=== PATIENT | female | born 1940 | race Two or more races ===

== ENCOUNTER 2024-12-25 16:46 | Inpatient (IN) | payer MEDICAID, SELFPAY ==
[2024-12-25] VITALS (8 sets, daily range): BP systolic 120–212; BP diastolic 71–168; PULSE 102–136; RESP 16–96; TEMP 36.8–39.4; O2SAT 94–100; BMI 31.8
--- NOTE | 2024-12-25 17:46 | XR_ITS ---
EXAMINATION: AP chest single view TECHNIQUE: AP portable upright chest single view Date and time: December 25, 2024, 1755 hours INDICATIONS: Sepsis alert today with shortness of breath FINDINGS: No significant enlargement cardiac contour. Ectatic thoracic aorta. No pneumonia or pulmonary edema Prominent osteopenia IMPRESSION: No active disease
[2024-12-25] MEDS: RINGERS LACTATED 1000 ML 1,000 ML 999 ML IV ×2 (17:55→19:16)
[2024-12-25] MEDS: ACETAMINOPHEN IVPB 1,000 MG/100 ML VIAL 250 MG IV (18:08)
[2024-12-25] MEDS: cefTRIAXone/D5w 1gm IV premix 1 GM/50 ML BAG IV (18:16)
[2024-12-25 18:23] LABS: Collection Type, Urine Clean Catch
[2024-12-25 18:29] LABS: Lactate (Lactic Acid) 8.2 mMol/L (0.4-2.0)
--- NOTE | 2024-12-25 18:30 | XR_ITS ---
Examination: CT abdomen and pelvis without contrast. Coronal 3-D reconstructions. Sagittal 2-D reconstructions. Date and time of exam: December 25, 2024, 1927 hours COMPARISON: January 22, 2023 INDICATIONS: Generalized abdominal pain and diarrhea onset today. CTDI: vol (mGy): 8.82 DLP: (mGycm): 485 Technique: Axial images of the abdomen have been obtained, 3 mm slice thickness Intravenous contrast material has not been administered. Low dose protocols were performed. One or more of the following dose reduction techniques were used; automated exposure control, adjustment of the mA and/or KV according to patient size, use of iterative reconstruction technique. Findings: 4 mm pulmonary nodule left lower lobe Liver is irregular in contour and moderately enlarged, no focal liver lesions Contracted gallbladder Spleen is not enlarged Normal adrenal glands Significant left perinephric stranding, no hydronephrosis Aorta normal size No pericecal inflammatory change Distended urinary bladder Localized weakening of the anterior pelvic wall No bowel obstruction Prominent osteopenia with grade 1 anterolisthesis L4 on L5 IMPRESSION: Moderate hepatomegaly, suspicious for primary hepatocellular disease 4 mm pulmonary nodule left lower lobe, recommend PA lateral chest follow-up Significant left perinephric stranding, consider left pyonephritis No CT findings of appendicitis or bowel obstruction
[2024-12-25 18:33] LABS: Basophils # (Auto) 0.1 Thou/mm3 (0.0-0.2); Basophils % (Auto) 0 % (0-2.5); Eosinophils # (Auto) 0.0 Thou/mm3 (0.0-0.5); Eosinophils % (Auto) 0 % (0-10); Hematocrit 32.5 % (36.0-46.0); Hemoglobin 11.2 g/dL (12.0-16.0); Immature Granulocytes Auto 0.52 Thou/mm3 (0.00-0.00); Lymphocytes # (Auto) 1.6 Thou/mm3 (1.0-4.8); Lymphocytes % (Auto) 4 % (10-50); Mean Corpuscular HGB Conc 34.5 g/dl (31.0-37.0); Mean Corpuscular Hemoglobin 29.7 pg (25.0-35.0); Mean Corpuscular Volume 86 fL (80-100); Monocytes # (Auto) 1.6 Thou/mm3 (0.0-0.8); Monocytes % (Auto) 4 % (0-12); Neutrophils # (Auto) 35.8 Thou/mm3 (1.8-7.7); Neutrophils % (Auto) 90 % (37-80); Nucleated Red Blood Cell # 0.02 Thou/mm3 (0.00-0.00); Nucleated Red Blood Cell % 0 /100 WBC (0); Platelet Count 433 Thou/mm3 (140-440); RDW Standard Deviation 44.5 fL (36.4-46.3); Red Blood Count 3.77 Miln/mm3 (4.00-5.20)
--- NOTE | 2024-12-25 18:34 | EDNOTE_ITS ---
ED General RME/HPI General Chief complaint: Altered Mental Status Stated complaint: AMS Time Seen by Provider: 12/25/24 18:32 Arrival date/time: 12/25/24 16:46 CC: Body aches, with mild nausea HPI 8 days. Patient denies dizziness headache blurred vision seeing spots diarrhea constipation chest pain or shortness of breath. Related Data Home Medications ?Medication ?Instructions ?Recorded ?Confirmed amlodipine 5 mg tablet 5 mg PO QDAY 05/04/17 aspirin 81 mg tablet,delayed 81 mg PO DAILY 05/04/17 1 03/25/22 release (Aspir-) Held on 01/27/23. Instructions: untill visit PCP atorvastatin 20 mg tablet 20 mg PO QDAY 05/04/1701/22 hydrochlorothiazide 25 mg tablet 25 mg PO QDAY 8 01/22/23 losartan 100 mg tablet 100 mg PO QDAY 05/04/17 1204/15 sitagliptin phosphate 50 1 tab PO BID 05/04/17 mg-metformin 1,000 mg tablet ([place]umet) dorzolamide 22.3 mg-timolol 6.8 1 drp ophthalmic (eye) BID 01/22/23 01/24/23 mg/mL eye drops latanoprost 0.005 % eye drops 1 drp ophthalmic (eye) H S 01/22/23 01/24/23 Previous Rx's ?Medication ?Instructions ?Recorded diclofenac sodium 1 % topical gel 2 g topical QID PRN pain #100 grams 10/28/21 (Arthritis Pain (diclofenac)) pantoprazole 40 mg tablet,delayed 40 mg PO QDAY #30 ta bs 01/27/23 release Allergies Allergy/AdvReac Type Severity Reaction Status Date / Time No Known Allergies Allergy Verified 01/24/23 20:22 Review of Systems Review of Systems Narrative Review of Systems: GEN: No fever, no chills, no weight loss, +bodyaches EYES: No discharge, no visual changes, no pain HEENT: No ear pain, no congestion, no sore throat PULM: No shortness of breath, no cough, no congestion CV: No chest pain, no dyspnea on exertion, no palpitations GI: No nausea, no vomiting, no diarrhea, no pain, no constipation : No frequency, no urgency, no dysuria MUSC/SKEL: No joint pain, no back pain SKIN: No rash PSYCH: No hallucinations, no depression HEME/LYMPH: No easy bleeding or bruising tendencies NEURO: No weakness, no headache Past Medical History Past Medical History NEUROLOGIC: Negative Neurological Disorders or Seizures CARDIAC: Positive Cardiac Disorders, Hypercholesterolemia and Hypertension; Negative Congestive Heart Failure RESPIRATORY: Negative Chronic Obstructive Pulmonary Disease (COPD) GASTROINTESTINAL: Negative Gastrointestinal Disorders GENITOURINARY: Negative Genitourinary Disorders or Renal Disease MUSCULOSKELETAL: Negative Musculoskeletal Disorders ENT: Positive Cataracts and Blind ENDOCRINE: Positive Endocrine Disorders, Diabetes Mellitus Type 2 and Hyperthyroidism; Negative Diabetes Mellitus Type 1 HEMATOLOGIC: Negative Blood Disorders OTHER HISTORY: Positive Blood Transfusions; Negative Blood Transfusion Reaction or Anesthesia Reactions Social History SMOKING STATUS: Never smoker ED Exam Narrative Physical exam: [General: Obese in mild discomfort but not in any acute distress Head normocephalic HEENT: Within acceptable limits Neck is supple nontender Chest equal chest rise nontender to palpation Respiratory: Clear to auscultation no wheezes crackles or rubs CV: Rate rhythm is regular no murmurs rubs or clicks Abdomen is distended secondary to body habitus soft nontender no masses positive bowel sounds all 4 quadrants Back: No CVA tenderness no spinous process tenderness from cervical spine thoracic and lumbar spine Skin: Intact no petechiae rash induration ulceration or crepitus Extremities: Moving all extremity against resistance cap refill less than 2 seconds neurosensory intact. No lower extremity edema Neuro: Awake alert oriented x3 Glascow coma 15 no focal deficits] Course Course Course Narrative: Patient is septic, with a CT that shows perinephric stranding on the left side suggestive of pyelonephritis although urine did not present self the patient certainly presents with the type of complaints. Patient will be admitted for pyelonephritis hyponatremia and sepsis. Patient's case presented to Dr. Winters, resident for Dr. Eaton, who agrees to accept the patient for admission. Quality Measures none Orders Category Date Time Status Admit to Inpatient Status Routine Admission 12/25/24 22:06 Active Patient Condition Routine Admission 12/25/24 22:06 Ordered Bedrest NOW Care 12/25/24 22:07 Active Bedside Blood Glucose ACHS Care 12/25/24 22:22 Active Bedside COVID-19 Antigen Test NOW Care 12/25/24 17:58 Active COVID-19 Screening Questionnaire NOW Care 12/25/24 20:42 Active Fine Wire Drawer STAT Care 12/25/24 17:46 Active Continuous Pulse Oximetry STAT Care 12/25/24 17:46 Completed Decision to Admit X1 Care 12/25/24 20:42 Completed EKG (ED ONLY) *Do not use* NOW Care 12/25/24 17:46 Completed In and Out Catheter X1 Care 12/25/24 17:49 Completed In and Out Catheter X1PRN Care 12/25/24 17:46 Completed Insert IV NOW Care 12/25/24 17:46 Active Miscellaneous Nursing Order X1 Care 12/25/24 22:11 Active NPO STAT Care 12/25/24 17:46 Active Notify provider NEEDED Care 12/25/24 22:06 Active Nurse Swallow Screen X1 Care 12/25/24 22:24 Active Obtain weight daily Care 12/25/24 22:07 Active Strict Intake and Output Routine Care 12/25/24 17:46 Ordered Diet Carbohydrate Consistent Low Diet 12/26/[address] abdomen pelvis wo con Stat Exams 12/25/24 18:30 Completed EKG (ED Only) Stat Exams 12/25/24 17:46 Ordered XR chest 1V SEPSIS PROTOCOL Stat Exams 12/25/24 17:46 Completed A1C [Glycohemoglobin w (eAG)] AM DRAW Lab 12/26/24 05:00 Ordered B-Type Natriuretic Peptide Stat Lab 12/25/24 17:59 Completed Blood Culture (Lab) Stat Lab 12/25/24 18:12 Received CBC AM DRAW Lab 12/26/24 05:00 Ordered CBC AM DRAW Lab 12/27/24 05:00 Ordered CBC AM DRAW Lab 12/28/24 05:00 Ordered CBC AM DRAW Lab 12/29/24 05:00 Ordered CBC AM DRAW Lab 12/30/24 05:00 Ordered CBC AM DRAW Lab 12/31/24 05:00 Ordered CBC AM DRAW Lab 01/01/25 05:00 Ordered CBC AM DRAW Lab 01/02/25 05:00 Ordered CBC AM DRAW Lab 01/03/25 05:00 Ordered CBC AM DRAW Lab 01/04/25 05:00 Ordered CBC Stat Lab 12/25/24 17:59 Completed CMP [Comprehensive Metabolic Panel] AM DRAW Lab 12/26/24 05:00 Ordered CMP [Comprehensive Metabolic Panel] AM DRAW Lab 12/27/24 05:00 Ordered CMP [Comprehensive Metabolic Panel] AM DRAW Lab 12/28/24 05:00 Ordered CMP [Comprehensive Metabolic Panel] AM DRAW Lab 12/29/24 05:00 Ordered CMP [Comprehensive Metabolic Panel] AM DRAW Lab 12/30/24 05:00 Ordered CMP [Comprehensive Metabolic Panel] AM DRAW Lab 12/31/24 05:00 Ordered CMP [Comprehensive Metabolic Panel] AM DRAW Lab 01/01/25 05:00 Ordered CMP [Comprehensive Metabolic Panel] AM DRAW Lab 01/02/25 05:00 Ordered CMP [Comprehensive Metabolic Panel] AM DRAW Lab 01/03/25 05:00 Ordered CMP [Comprehensive Metabolic Panel] AM DRAW Lab 01/04/25 05:00 Ordered Chloride,Urine Random Routine Lab 12/25/24 22:12 Ordered Comprehensive Metabolic Panel Stat Lab 12/25/24 17:59 Completed Influenza A & B Rapid Panel Stat Lab 12/25/24 18:38 Completed K URINE [Potassium,Urine Random] Routine Lab 12/25/24 22:12 Ordered LDH (Lactate Dehydrogenase) Stat Lab 12/25/24 17:59 Completed Lactate (Lactic Acid) Stat Lab 12/25/24 17:59 Completed Lactic Acid [Lactate (Lactic Acid)] Q4H Lab 12/25/24 02:00 Ordered Lactic Acid [Lactate (Lactic Acid)] Q4H Lab 12/25/24 06:00 Ordered Lactic Acid [Lactate (Lactic Acid)] Q4H Lab 12/25/24 10:00 Ordered Lactic Acid [Lactate (Lactic Acid)] Q4H Lab 12/25/24 14:00 Ordered Lactic Acid [Lactate (Lactic Acid)] Q4H Lab 12/25/24 18:00 Ordered Lactic Acid [Lactate (Lactic Acid)] Q4H Lab 12/25/24 22:00 Ordered Lactic Acid, 3 HR Stat Lab 12/25/24 21:32 Completed Lipase Stat Lab 12/25/24 17:59 Completed Mag [Magnesium] AM DRAW Lab 12/26/24 05:00 Ordered Mag [Magnesium] AM DRAW Lab 12/27/24 05:00 Ordered Mag [Magnesium] AM DRAW Lab 12/28/24 05:00 Ordered Mag [Magnesium] AM DRAW Lab 12/29/24 05:00 Ordered Mag [Magnesium] AM DRAW Lab 12/30/24 05:00 Ordered Magnesium Stat Lab 12/25/24 17:59 Completed Partial Thromboplastin Time Stat Lab 12/25/24 17:59 Completed Path Review Blood Smear Stat Lab 12/25/24 17:59 Completed Phosphorous AM DRAW Lab 12/26/24 05:00 Ordered Phosphorous AM DRAW Lab 12/27/24 05:00 Ordered Phosphorous AM DRAW Lab 12/28/24 05:00 Ordered Phosphorous AM DRAW Lab 12/29/24 05:00 Ordered Phosphorous AM DRAW Lab 12/30/24 05:00 Ordered Phosphorous Stat Lab 12/25/24 17:59 Completed Procalcitonin Stat Lab 12/25/24 17:59 Completed Prothrombin Time with INR Stat Lab 12/25/24 17:59 Completed SODIUM NA URINE [Sodium,Urine Random] Routine Lab 12/25/24 22:12 Ordered Sodium Q4H Lab 12/26/24 02:00 Ordered Sodium Q4H Lab 12/26/24 06:00 Ordered Sodium Q4H Lab 12/26/24 10:00 Ordered Sodium Q4H Lab 12/26/24 14:00 Ordered Sodium Q4H Lab 12/26/24 18:00 Ordered Sodium Q4H Lab 12/26/24 22:00 Ordered TSH [Thyroid Stimulating Hormone] AM DRAW Lab 12/26/24 05:00 Ordered Troponin I Stat Lab 12/25/24 17:59 Completed Urinalysis, C/S if Indicated Stat Lab 12/25/24 18:00 Completed Urine Culture Stat Lab 12/25/24 18:00 Received VBG [Venous Blood Gas] Stat Lab 12/25/24 21:32 Completed Acetaminophen Ivpb [Ofirmev Inj] Med 12/25/24 17:49 Discontinued 1,000 mg in 100 ml IV NOW Acetaminophen Tab [Tylenol Tab] Med 12/25/24 22:06 Active 650 mg PO Q6H PRN Dextrose 50% Syr [D50w Syringe Abboject] Med 12/25/24 22:21 Active 25 ml IV Q15MIN PRN Dextrose 50% Syr [D50w Syringe Abboject] Med 12/25/24 22:21 Active 50 ml IV Q15MIN PRN Glucagon Inj Med 12/25/24 22:21 Active 1 mg IM Q15MIN PRN Heparin Inj Med 12/25/24 22:15 Active 5,000 unit SC Q8HR INSULIN LISPRO (AdmeLOG) [HumaLOG] Med 12/26/24 07:30 Active See Protocol SC AC Magnesium Sulfate 1 gm Ivpb [Magnesium Sulfate Ivpb] Med 12/25/24 19:58 Discontinued 1 gm in 100 ml IV X1 Magnesium Sulfate 4 GM Ivpb [Magnesium Sulfate Ivpb] Med 12/25/24 22:12 Active 4 gm in 50 ml IV X1 Ondansetron Inj [Zofran Inj] Med 12/25/24 22:06 Active 4 mg IVP Q6H PRN Ringers Lactated 1000 ml [Lactated Ringers] 1,000 ml Med 12/25/24 17:46 Discontinued IV 999 mls/hr Ringers Lactated 1000 ml [Lactated Ringers] 1,000 ml Med 12/25/24 18:31 Discontinued IV 999 mls/hr Ringers Lactated 500 ml [Lactated Ringers] 500 ml Med 12/25/24 18:31 Discontinued IV 999 mls/hr Sodium Chloride 0.9% 1000 ml [Ns] 1,000 ml Med 12/25/24 22:15 Active IV 100 mls/hr cefTRIAXone [Rocephin] 1,000 mg Med 12/25/24 22:09 Active SODIUM CHLORIDE 0.9% (Popper) [Ns 0.9% (P)] 50 ml IV X1 cefTRIAXone [Rocephin] 2 gm Med 12/26/24 09:00 Pending SODIUM CHLORIDE 0.9% (Popper) [Ns 0.9% (P)] 50 ml IV QDAY cefTRIAXone/D5w 1gm IV premix [Rocephin/D5w 1gm IV Med 12/25/24 17:58 Discontinued premix] 1 gm in 50 ml IV X1 hydrALAZINE INJ [Apresoline Inj] Med 12/25/24 19:59 Discontinued 10 mg IVP X1 ONE Code Status Routine Oth 12/25/24 22:06 Ordered Oxygen Delivery NOW RT 12/25/24 17:46 Active Vital Signs Vital signs: Vital Signs Temperature 102.9 F H 12/25/24 16:56 Pulse Rate 136 H 12/25/24 16:56 Respiratory Rate 24 H 12/25/24 16:56 Blood Pressure 212/168 H 12/25/24 16:56 Pulse Oximetry (%) 95 12/25/24 16:56 Oxygen Delivery Method Nasal Cannula 12/25/24 16:56 Oxygen Flow Rate 2 12/25/24 16:56 Discharge Plan Plan Patient Disposition: Other Care w/in Hosp ([facility]) Patient condition on transfer: Stable Problem List Clinical Impression: Sepsis, Pyelonephritis, Hyponatremia, Acute renal insufficiency PA/ROBERT Supervising Physician MAURY/IMPORT EXPORT COORDINATOR Supervising Physician: Shemar Mckeon ENP [facility] Clinical Information Provided by: patient Medical Records reviewed [facility] Meds/Rx considered, not ordered None Labs/Rad/Tests considered, not ordered None Chronic Illness/Social Conditions Explain: Hypertension hyperlipidemia diabetes EKG Interpretation EKG #1: EKG Interpretation: EKG performed 1726 was ventricular rate of 130 MS interval 150 QRS of 74 QTc of 327 this is sinus tachycardia. Baseline wander. No significant ST segment changes Labs Labs: interpreted by me Lab(s) Interpretation(s): CBC shows a WBCs of 39.6 H&H of 11.2 and 32.5 respectively. Neutrophils at 90%. No bandemia. Coags within acceptable limits Sodium at 121 potassium at 5.0 chloride at 8 5 BUN at 21 creatinine 1.8 glucose at 268 lactic at 8.2 mag at 1.3. Troponin is unremarkable BMP is unremarkable. Creatinine at 5.29. Urine is 3+ glucose 1+ protein 2+ blood no ketones nitrite and leukocyte esterase -1+ bacteria Influenza A and B are negative. Imaging Imaging interpretation: interpreted by me Imaging Interpretation(s): Chest x-ray shows no active disease. Medication Administration(s) Medication Administration History Acetaminophen (Acetaminophen 325 Mg Tablet) 650 mg PO Q6H PRN PRN Reason: PAIN OR FEVER > 100.4 Stop: 01/24/25 22:05 Dextrose (Dextrose 50%-Water Inj 50 Ml Syringe) 25 ml IV Q15MIN PRN PRN Reason: BG 50-70 responsive npo pt Stop: 01/24/25 22:20 Dextrose (Dextrose 50%-Water Inj 50 Ml Syringe) 50 ml IV Q15MIN PRN PRN Reason: BG <50 OR BG <70 & pt unresponsive Stop: 01/24/25 22:20 Glucagon (Glucagon Inj 1 Mg Vial) 1 mg IM Q15MIN PRN PRN Reason: BG <70, and no IV access Heparin Sodium (Porcine) (Heparin Sod Inj 5000 Unit/Ml Vial) 5,000 unit SC Q8HR LAURA Stop: 01/08/25 22:14 Sodium Chloride (Ns) 1,000 mls @ 100 mls/hr IV .Q10H LAURA Stop: 12/26/24 08:14 Ceftriaxone Sodium 1,000 mg/ (Sodium Chloride) 50 mls @ 100 mls/hr IV X1 ONE Stop: 12/25/24 22:38 Last Admin: 12/25/24 22:31 Dose: 100 mls/hr Documented By: LAMBERTO Magnesium Sulfate (Magnesium Sulfate Ivpb) 4 gm in 50 mls @ 12.5 mls/hr IV X1 ONE Stop: 12/26/24 02:11 Ceftriaxone Sodium 2 gm/ (Sodium Chloride) 50 mls @ 100 mls/hr IV QDAY [facility] Stop: 01/02/25 08:59 Insulin Human Lispro (Insulin Lispro (Admelog) 1 Unit/0.01 Ml Unit) 0 unit SC AC LAURA; Protocol Stop: 01/25/25 07:29 Ondansetron HCl (Ondansetron Inj 2 Mg/Ml Inj 2 Ml) 4 mg IVP Q6H PRN; Protocol PRN Reason: NAUSEA OR VOMITING Stop: 01/24/25 22:05 Discontinued Medications Hydralazine HCl (Hydralazine Inj 20 Mg/Ml Vial) 10 mg IVP X1 ONE Stop: 12/25/24 20:00 Last Admin: 12/25/24 20:39 Dose: Not Given Documented By: LAMBERTO Non-Admin Reason: Cancelled by Provider Comments: hold per provider bp 120/71 Lactated Ringer's (Lactated Ringers) 1,000 mls @ 999 mls/hr IV .Q1H1M ONE Stop: 12/25/24 18:46 Last Infusion: 12/25/24 19:19 Dose: Infused Documented By: Admin: 12/25/24 17:55 Dose: 999 mls/hr Documented By: CARISA Acetaminophen (Ofirmev Inj) 1,000 mg in 100 mls @ 250 mls/hr IV NOW ONE Stop: 12/25/24 18:12 Last Infusion: 12/25/24 18:40 Dose: Infused Documented By: Admin: 12/25/24 18:08 Dose: 250 mls/hr Documented By: CARISA Ceftriaxone Sodium/Dextrose (Rocephin/D5w 1gm Iv Premix) 1 gm in 50 mls @ 100 mls/hr IV X1 ONE Stop: 12/25/24 18:27 Last Infusion: 12/25/24 19:19 Dose: Infused Documented By: Admin: 12/25/24 18:16 Dose: 100 mls/hr Documented By: CARISA Lactated Ringer's (Lactated Ringers) 1,000 mls @ 999 mls/hr IV .Q1H1M ONE Stop: 12/25/24 19:31 Last Infusion: 12/25/24 20:29 Dose: Infused Documented By: Admin: 12/25/24 19:16 Dose: 999 mls/hr Documented By: CARISA Lactated Ringer's (Lactated Ringers) 500 mls @ 999 mls/hr IV .Q31M ONE Stop: 12/25/24 19:01 Last Infusion: 12/25/24 20:32 Dose: Infused Documented By: Admin: 12/25/24 19:30 Dose: 999 mls/hr Documented By: LAMBERTO Comments: unable to scan medication no LR bags avaible in 500mls. Verified with Stacy GASTON. Magnesium Sulfate/Dextrose (Magnesium Sulfate Ivpb) 1 gm in 100 mls @ 100 mls/hr IV X1 ONE Stop: 12/25/24 20:57 Last Infusion: 12/25/24 21:46 Dose: Infused Documented By: Admin: 12/25/24 20:41 Dose: 100 mls/hr Documented By: LAMBERTO Levalbuterol HCl (Levalbuterol Rt 0.31 Mg/3 Ml Nebu) 0.31 mg INH X1 ONE Stop: 12/25/24 22:32
[2024-12-25 18:36] LABS: Bacteria,Urine 1+; Bilirubin,Urine Negative (Negative); Blood,Urine 2+ (Negative); Clarity,Urine Clear (Clear/Hazy); Color,Urine Lt-Yellow (Lt Yel-Yel); Glucose, Urine 3+ (Negative); Hyaline Casts,Urine < 1 /hpf (0-1); Ketones,Urine Trace (Negative); Leukocyte Esterase,Urine Negative (Negative); Nitrite,Urine Negative (Negative); PH,Urine 5.5 (5.0-7.0); Protein,Urine 1+ (Neg - Trace); RBC,Urine 1 /hpf (0-3); Specific Gravity,Urine 1.009 (1.001-1.035); Squamous Epithelial Cell,Urine < 1 /hpf (0-5); Urobilinogen,Urine Negative mg/dL (0.0-1.0); WBC,Urine 4 /hpf (0-5)
[2024-12-25 18:37] LABS: Culture Indicated,Urine Yes
[2024-12-25 18:47] LABS: INR 1.1 (0.9-1.3); Partial Thromboplastin Time 30.2 Seconds (22.0-36.0); Prothrombin Time 11.4 Seconds (9.0-12.2)
[2024-12-25 18:48] LABS: White Blood Count 39.6 Thou/mm3 (3.6-11.0)
[2024-12-25 19:30] LABS: Path Review Blood Smear Sent to Pathologist
[2024-12-25] MEDS: RINGERS LACTATED 500 ML 500 ML 999 ML IV (19:30)
[2024-12-25 19:40] LABS: Alanine Aminotransferase 24 U/L (10-49); Albumin, Serum 4.2 gm/dL (3.4-4.8); Albumin/Globulin Ratio 1.6 (1.2-2.2); Alkaline Phosphatase 108 U/L (46-116); Anion Gap 15 (7-16); Aspartate Amino Transferase 26 U/L (0-34); BUN/Creatinine Ratio 12 Ratio (12-20); Bilirubin,Total 0.4 mg/dL (0.3-1.2); Blood Urea Nitrogen 21 mg/dL (9-23); Calcium 9.2 mg/dL (8.3-10.6); Calcium (Corrected) 9.2 mg/dL (8.5-10.1); Carbon Dioxide 21.5 mMol/L (20.0-31.0); Chloride 85 mMol/L (98-107); Creatinine (Component) 1.8 mg/dL (0.6-1.3); Estimated Creatinine Clearance 19.3 mL/min (>60); Globulin 2.6 gm/dL (2.3-3.5); Glucose 268 mg/dL (74-106); LDH (Lactate Dehydrogenase) 227 U/L (120-246); Lipase 23 U/L (12-53); Magnesium 1.3 mg/dL (1.6-2.6); Osmolality,Calculated 256 (275-295); Phosphorous 3.1 mg/dL (2.4-5.1); Potassium 5.0 mMol/L (3.4-5.1); Procalcitonin 5.29 ng/ml (0.0-0.49); Sodium 121 mMol/L (136-145); Total Protein 6.8 gm/dL (5.7-8.2); Troponin I < 0.020 ng/mL (0.0-0.045); eGFR 27 See Note
[2024-12-25 19:42] LABS: B-Type Natriuretic Peptide 73 pg/mL (0-100)
[2024-12-25 19:43] LABS: Influenza A Ag Negative; Influenza B Ag Negative
[2024-12-25 21:20] LABS: Reflex Lactate? Y
[2024-12-25 21:42] LABS: Lactic Acid, 3 HR 3.5 mMol/L (0.4-2.0)
[2024-12-25 21:43] LABS: Base Excess, Venous -2 (-3-3); O2 Saturation, Venous 79 % (96-97); PCO2, Venous 34 mmHg (36-56); PO2, Venous 39 mmHg (15-58); pH, Venous 7.43 (7.33-7.66)
--- NOTE | 2024-12-25 22:17 | ESHP_ITS ---
<Statement entered by Joe Eaton MD - 12/26/24 07:28> I have discussed and was present for the essential components of the history, physical examination, diagnosis, and treatment plan with the resident. I agree with the patient's care as documented by the resident and amended herein by me. Joe Eaton MD FACP. 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 The patient reports increased urinary frequency and fever with chills over the past 4 days but denies dysuria, hematuria, or foul- smelling urine. She had a bowel movement today and denies nausea, vomiting, or changes in stool consistency. There is no chest pain, orthopnea, or edema. She reports mild shortness of breath but denies cough, wheezing, or any recent travel. No recent changes in medications or known exposures to illness. ED course: Initial vitals include temperature 102.9, BP 212/168, RR 24, HR 136, O2 sat 95% on 2 L nasal prongs. Notable labs include WBC 39.6, sodium 121, potassium 5, creatinine 1.8, lactic acid 8.2 with repeat 3.5, magnesium 1.3, BNP 73, procalcitonin 5.29, LFTs within normal range. UA was unremarkable. VBG showed pH 7.43, pCO2 34. Patient received LR 2.5 L, ceftriaxone 2 g IV, magnesium sulfate 5 g. Initial chest x-ray showed no pneumonia, pulmonary edema. CT abdo/pelvis showed significant left perinephric stranding. Over the course of the night patient was transitioned to BiPAP as was having respiratory distress and successfully weaned off. Past medical history: As stated above. Allergies: NKDA Family history: Noncontributory. Social history: No alcohol use, no smoking, no illicit drug use. Patient admitted for Sepsis 2/ to Pyelonepritis. Review of Systems Review of Systems Narrative Review of Systems: All systems reviewed negative unless stated otherwise above. Exam Vital Signs Temp Pulse Resp BP Pulse Ox O2 Del Method O2 Flow Rate 98.3 F 102 H 20 120/71 97 Room Air 2 12/25/24 20:36 12/25/24 20:36 12/25/24 20:36 12/25/24 20:36 12/25/24 20:36 12/25/24 20:36 12/25/24 16:56 Narrative Exam General: AOx3, mild distress, SOB at end of sentences, Telugu-speaking HEENT: NC/AT, mucous membranes moist, bilateral sclera anicteric Cardiovascular: regular rate and rhythm, S1/S2 present, no murmurs appreciated Pulmonary: bilat wheezes, no rales/rhonchi/wheezes Abdominal: soft, generalized tenderness, distended, no rebound/guarding, normal bowel sounds present Musculoskeletal: normal ROM, no peripheral edema Skin: warm and dry, intact, no rashes, Neuro: CN II-XII intact, no focal deficits Results: Labs 12/25/24 17:59 12/26/24 01:50 Labs: Short CBC 12/25/24 Range/Units 17:59 WBC 39.6 H* (3.6-11.0) Thou/mm3 Hgb 11.2 L (12.0-16.0) g/dL Hct 32.5 L (36.0-46.0) % Plt Count 433 (140-440) Thou/mm3 BMP 12/25/24 17:59 Sodium 121 L Potassium 5.0 Chloride 85 L Carbon Dioxide 21.5 BUN 21 Creatinine 1.8 H Glucose 268 H Calcium 9.2 Cardiac Enzymes 12/25/24 Range/Units 17:59 Troponin I < 0.020 (0.0-0.045) ng/mL Liver Function 12/25/24 Range/Units 17:59 Total Bilirubin 0.4 (0.3-1.2) mg/dL AST 26 (0-34) U/L ALT 24 (10-49) U/L Alkaline Phosphatase 108 (46-116) U/L Albumin 4.2 (3.4-4.8) gm/dL Urine 12/25/24 Range/Units 18:00 Urine Color Lt-Yellow (Lt Yel-Yel) Urine Clarity Clear (Clear/Hazy) Urine pH 5.5 (5.0-7.0) Ur Specific [place] 1.009 (1.001-1.035) Urine Protein 1+ A (Neg - Trace) Urine Glucose (UA) 3+ A (Negative) ABG Interpretation ABG results: 12/25/24 21:32 VBG pH 7.43 VBG pCO2 34 L VBG pO2 39 VBG Base Excess -2 Quality Measures Quality Measures VTE prophylaxis Advance care planning discussed with:: patient Medications Home Medications and Allergies Home Medications ?Medication ?Instructions ?Recorded ?Confirmed ?Type hydrochlorothiazide 25 mg tablet 25 mg PO QDAY 8 12/26/24 History losartan 100 mg tablet 100 mg PO QDAY 05/04/1707/15 History dorzolamide 22.3 mg-timolol 6.8 1 drp ophthalmic (eye) BID 01/22/23 12/26/24 History mg/mL eye drops latanoprost 0.005 % eye drops 1 drp ophthalmic (eye) H S 01/22/23 12/26/24 History atorvastatin 10 mg tablet 10 mg PO HS 12/26/24 5 History blood sugar diagnostic (True 12/26/24 12/26/24 Histor y Metrix Glucose Test Strip) cholecalciferol (vitamin D3) 25 25 mcg PO QDAY 5 12/26/24 History mcg (1,000 unit) tablet (Vitamin D3) furosemide 20 mg tablet 20 mg PO Q12H 12/26/2412/26 History gabapentin 300 mg capsule 300 mg PO TID 12/26/2412/26 History insulin degludec 100 unit/mL (3 5 unit subcut Q24H PRN 12/26/24 12/26/24 History mL) subcutaneous pen (Tresiba hyperglycemia FlexTouch U-100 insulin) magnesium oxide 400 mg (241.3 mg 400 mg PO QDAY 12/26/24 History magnesium) tablet metformin 500 mg tablet,extended 1,000 mg PO BIDAC 07/1512/26/24 History release 24 hr multivitamin 1 tab PO QDAY 12/26/2412/26 History Allergies Allergy/AdvReac Type Severity Reaction Status Date / Time No Known Allergies Allergy Verified 01/24/23 20:22 Visit Medications Acetaminophen (Acetaminophen 325 Mg Tablet) 650 mg PO Q6H PRN PRN Reason: PAIN OR FEVER > 100.4 Stop: 01/24/25 22:05 Heparin Sodium (Porcine) (Heparin Sod Inj 5000 Unit/Ml Vial) 5,000 unit SC Q8HR LAURA Stop: 01/08/25 22:14 Sodium Chloride (Ns) 1,000 mls @ 100 mls/hr IV .Q10H LAURA Stop: 12/26/24 08:14 Ceftriaxone Sodium 1,000 mg/ (Sodium Chloride) 50 mls @ 100 mls/hr IV X1 ONE Stop: 12/25/24 22:38 Magnesium Sulfate (Magnesium Sulfate Ivpb) 4 gm in 50 mls @ 12.5 mls/hr IV X1 ONE Stop: 12/26/24 02:11 Ceftriaxone Sodium 2 gm/ (Sodium Chloride) 50 mls @ 100 mls/hr IV QDAY LAURA Stop: 01/02/25 08:59 Ondansetron HCl (Ondansetron Inj 2 Mg/Ml Inj 2 Ml) 4 mg IVP Q6H PRN; Protocol PRN Reason: NAUSEA OR VOMITING Stop: 01/24/25 22:05 Discontinued Medications Hydralazine HCl (Hydralazine Inj 20 Mg/Ml Vial) 10 mg IVP X1 ONE Stop: 12/25/24 20:00 Last Admin: 12/25/24 20:39 Dose: Not Given Lactated Ringer's (Lactated Ringers) 1,000 mls @ 999 mls/hr IV .Q1H1M ONE Stop: 12/25/24 18:46 Last Infusion: 12/25/24 19:19 Dose: Infused Acetaminophen (Ofirmev Inj) 1,000 mg in 100 mls @ 250 mls/hr IV NOW ONE Stop: 12/25/24 18:12 Last Infusion: 12/25/24 18:40 Dose: Infused Ceftriaxone Sodium/Dextrose (Rocephin/D5w 1gm Iv Premix) 1 gm in 50 mls @ 100 mls/hr IV X1 ONE Stop: 12/25/24 18:27 Last Infusion: 12/25/24 19:19 Dose: Infused Lactated Ringer's (Lactated Ringers) 1,000 mls @ 999 mls/hr IV .Q1H1M ONE Stop: 12/25/24 19:31 Last Infusion: 12/25/24 20:29 Dose: Infused Lactated Ringer's (Lactated Ringers) 500 mls @ 999 mls/hr IV .Q31M ONE Stop: 12/25/24 19:01 Last Infusion: 12/25/24 20:32 Dose: Infused Magnesium Sulfate/Dextrose (Magnesium Sulfate Ivpb) 1 gm in 100 mls @ 100 mls/hr IV X1 ONE Stop: 12/25/24 20:57 Last Infusion: 12/25/24 21:46 Dose: Infused Assessment & Plan Plan 84-year-old female with a history of hypertension, hyperlipidemia, type 2 diabetes mellitus, and blindness in both eyes due to diabetic neuropathy, presented to the ED after an outpatient evaluation for fever, chills, urinary symptoms, and flank pain. Patient admitted for sepsis 2/2 to pylenonephritis. #Sepsis 2/2 #Complicated UTI, L pylenonephritis Febrile 102.9 on admission WBC 39.6 Procal 5.29 Lactic acid 8.2, repeat 3.[address] abdo/pelvis showed significant left perinephric stranding In ED patient received LR 2.5L and CTX 2g. Plan - Zosyn 3.375g q8h - F/U Urine Cx, Blood Cx - ECHO ordered #Acute hypoxic respiratory failure, resolving Likely 2/2 to tiring out due to increased RR BNP 73 VBG showed pH 7.43, pCO2 34. Plan - Started on BiPaP, wean off as appropriate #Hypotonic Hyponatremia Hypovolemic Na 121, but with correction for hyperglycemia 123 Osmolarity 256 Plan - Na q4h - Avoid overcorrection, aim for 4-6 mEq increase in Na in 24hr #JALYN DDx: pre-renal vs renal vs post-renal Most likely pre-renal in the setting of sepsis Cr 1.3 Plan -Recheck level in AM #T2DM, non-insulin dependent Plan - A1c level - Insulin Sliding scale Health Maintenance: Diet: NPO GI prophylaxis: none DVT prophylaxis: Heparin 5000u q8h Antibiotics: Zosyn CODE STATUS: FULL Disposition: TELE Case discussed with my attending Dr. Eaton, and senior resident, Dr. Singh Falcon MD PGY-1
[2024-12-25] MEDS: cefTRIAXone 1,000 MG in SODIUM CHLORIDE 0.9% (Popper) 50 ML 100 MG IV (22:31)
[2024-12-25] MEDS: Magnesium Sulfate 4 GM Ivpb 4 GM/50 ML BAG IV (22:43)
[2024-12-25] MEDS: HEPARIN SOD INJ 5000 UNIT/ML VIAL SC (22:45)
[2024-12-25] MEDS: SODIUM CHLORIDE 0.9% 1000 ML 1,000 ML 100 ML IV (22:45)
[2024-12-25] MEDS: LEVALBUTEROL RT 0.31 MG/3 ML NEBU INH (22:58)
--- NOTE | 2024-12-25 23:09 | ECHO_ITS ---
Patient Info Name: Mary Sanches Age: 84 years : 1940 Gender: Female Ht: 150 cm Wt: 72 kg BSA: 1.76 m2 BP: 133 / 67 mmHg HR: 119 bpm Exam Date: 12/26/2024 8:39 AM Admit Date: 12/25/2024 Site: [facility] Patient Status: I Exam Type: CA echo doppler complete Action Finisher: Cecelia Bell Ordering Physician: Joe Eaton Study Info Indications Sepsis - Primary Location: S2NX Left Ventricular Outflow Tract Name Value Normal LVOT 2D LVOT Diameter 1.9 cm LVOT Doppler LVOT Peak Velocity 115 cm/s LVOT Mean Gradient 3 mmHg LVOT VTI 26 cm LVOT VTI/AV VTI Ratio 0.9 LVOT Stroke Volume 72 ml Pulmonic Valve Name Value Normal PV Doppler PV Peak Velocity 107 cm/s Mitral Valve Name Value Normal MV Doppler MV Decel [place] 1,013 cm/s2 MV PHT 41 ms MV Area (PHT) 5.4 cm2 4.0-5.0 MV Diastolic Function MV E Peak Velocity 143 cm/s Tricuspid Valve Name Value Normal TV Regurgitation Doppler TR Peak Velocity 176 cm/s Estimated PAP/RSVP RA Pressure 8 mmHg <=5 PA Systolic Pressure 20 mmHg <36 RV Systolic Pressure 20 mmHg <36 Aortic Valve Name Value Normal AV Doppler AV Peak Velocity 158 cm/s AV Mean Gradient 6 mmHg AV VTI 28 cm AV Area (Cont Eq VTI) 2.6 cm2 >=3.0 AV Area (Cont Eq Tc) 2.1 cm2 AV DI (Tc) 0.73 AV Regurgitation 2D LVOT Area 2.8 cm2 Ventricles Name Value Normal LV Dimensions 2D/MM IVS Diastolic Thickness (2D) 0.9 cm 0.6-0.9 LVID Diastole (2D) 3.5 cm 3.8-5.2 LVIW Diastolic Thickness (2D) 1.2 cm 0.6-0.9 LVID Systole (2D) 2.3 cm 2.2-3.5 LVOT Diameter 1.9 cm LV Mass (2D Cubed) 111.04 g 67.00-162.00 LV Mass Index (2D Cubed) 63 g/m2 43-95 Relative Wall Thickness (2D) 0.69 <=0.42 IVS/LVIW Diastolic Thickness (2D) 0.75 0.00-1.50 LV Fractional Shortening/Ejection Fraction 2D/MM LV Fractional Shortening (2D) 34 % 27-45 LV EF (2D Teichholz) 64 % Atria Name Value Normal LA Dimensions LA Volume (4C A-L) 44 ml LA Volume (BP A-L) 35 ml Left Ventricle Left ventricular chamber dimension is normal. Left ventricular systolic function is normal with visually estimated ejection fraction of 55-60%. There is concentric remodeling noted in the left ventricle. Left ventricular segmental wall motion is normal. There is indeterminate diastolic function in the left ventricle. Right Ventricle Right ventricular chamber dimension is normal. Right ventricular systolic function is normal. Left Atrium Left atrial chamber dimension is normal. Right Atrium Right atrial chamber dimension is normal. Aortic Valve The aortic valve is trileaflet. There is mild aortic valve sclerosis. There is no aortic valve stenosis with a peak velocity of 158 cm/s, mean gradient of 6 mmHg, and aortic valve area of 2.6 cm2. There is no aortic valve regurgitation. Pulmonic Valve The pulmonic valve is normal. There is no pulmonic valve stenosis. There is no pulmonic regurgitation. Mitral Valve The mitral valve has normal leaflets. There is no mitral valve stenosis. There is mild mitral valve regurgitation. Tricuspid Valve The tricuspid valve leaflets are normal. There is no tricuspid valve stenosis. There is mild tricuspid valve regurgitation. No pulmonary hypertension, estimated pulmonary arterial systolic pressure is 20 mmHg and systemic blood pressure of 133 mmHg in systole. Pericardium/Pleural The pericardium appears normal. There is no pericardial effusion. No pleural effusion visualized. Inferior Vena Cava Normal inferior vena cava with >50% collapse upon inspiration consistent with normal right atrial pressure, 8 mmHg. Aorta The aortic measurements are indexed to age and body surface area. The aortic root at the sinus of Valsalva is not well visualized. The prox ascending aorta is not well visualized. Summary 1. Left ventricle size is normal and systolic function is normal. Estimated ejection fraction is 55-60%. There is indeterminate diastolic function. There is concentric remodeling noted. 2. Right ventricle chamber size is normal and systolic function is normal. Estimated RVSP is 20 mmHg. 3. There is mild aortic valve sclerosis with no stenosis. 4. There is mild mitral valve and tricuspid valve regurgitation. 5. Normal IVC with estimated RA pressure 8 mmHg. Report Signatures Finalized by Reymundo Quarles on 12/26/2024 12:55 PM
--- NOTE | 2024-12-25 23:15 | XR_ITS ---
EXAMINATION: AP chest single view TECHNIQUE: AP portable upright chest single view Date and time: December 25, 2024, 11:40 p.m.,. INDICATIONS: Shortness of breath today. FINDINGS: Normal heart size Ectatic enlarged thoracic aorta. No lobar pneumonia or pulmonary edema Mild vascular congestion Prominent osteopenia IMPRESSION: Mild vascular congestion
[2024-12-25] MEDS: PIPER/TAZO 3.375 GM PREMIX 3.375 GM/50 ML BAG IV (23:28)
[2024-12-25 23:46] LABS: Anion Gap 12 (7-16); BUN/Creatinine Ratio 9 Ratio (12-20); Blood Urea Nitrogen 12 mg/dL (9-23); Calcium 8.7 mg/dL (8.3-10.6); Carbon Dioxide 19.2 mMol/L (20.0-31.0); Chloride 91 mMol/L (98-107); Creatinine (Component) 1.3 mg/dL (0.6-1.3); Estimated Creatinine Clearance 26.8 mL/min (>60); Glucose 270 mg/dL (74-106); Osmolality,Calculated 255 (275-295); Potassium 4.9 mMol/L (3.4-5.1); Sodium 122 mMol/L (136-145); eGFR 40 See Note
[2024-12-26] VITALS (14 sets, daily range): BP systolic 132–167; BP diastolic 67–103; PULSE 94–132; RESP 17–100; TEMP 36.7–38.6; O2SAT 95–100
[2024-12-26] MEDS: LEVALBUTEROL RT 1.25 MG/0.5 ML NEBU INH ×2 (00:40→00:44)
[2024-12-26] MEDS: SODIUM CHLORIDE RT SOL 0.9% 3 ML NEBU INH ×2 (00:40→00:44)
[2024-12-26 02:24] LABS: Lactate (Lactic Acid) 4.4 mMol/L (0.4-2.0)
[2024-12-26 02:35] LABS: Sodium 126 mMol/L (136-145)
[2024-12-26 05:16] LABS: Reflex Lactate? Y
[2024-12-26] MEDS: HEPARIN SOD INJ 5000 UNIT/ML VIAL SC ×3 (05:22→20:59)
[2024-12-26 06:06] LABS: Lactate (Lactic Acid) 4.1 mMol/L (0.4-2.0)
[2024-12-26 06:20] LABS: Basophils # (Auto) 0.1 Thou/mm3 (0.0-0.2); Basophils % (Auto) 0 % (0-2.5); Eosinophils # (Auto) 0.0 Thou/mm3 (0.0-0.5); Eosinophils % (Auto) 0 % (0-10); Hematocrit 32.6 % (36.0-46.0); Hemoglobin 11.6 g/dL (12.0-16.0); Immature Granulocytes Auto 0.73 Thou/mm3 (0.00-0.00); Lymphocytes # (Auto) 0.5 Thou/mm3 (1.0-4.8); Lymphocytes % (Auto) 1 % (10-50); Mean Corpuscular HGB Conc 35.6 g/dl (31.0-37.0); Mean Corpuscular Hemoglobin 30.3 pg (25.0-35.0); Mean Corpuscular Volume 85 fL (80-100); Monocytes # (Auto) 1.7 Thou/mm3 (0.0-0.8); Monocytes % (Auto) 4 % (0-12); Neutrophils # (Auto) 39.2 Thou/mm3 (1.8-7.7); Neutrophils % (Auto) 93 % (37-80); Nucleated Red Blood Cell # 0.00 Thou/mm3 (0.00-0.00); Nucleated Red Blood Cell % 0 /100 WBC (0); Platelet Count 362 Thou/mm3 (140-440); RDW Standard Deviation 43.3 fL (36.4-46.3); Red Blood Count 3.83 Miln/mm3 (4.00-5.20)
[2024-12-26 06:50] LABS: White Blood Count 42.3 Thou/mm3 (3.6-11.0)
[2024-12-26 07:14] LABS: Alanine Aminotransferase 20 U/L (10-49); Albumin, Serum 4.0 gm/dL (3.4-4.8); Albumin/Globulin Ratio 1.4 (1.2-2.2); Alkaline Phosphatase 106 U/L (46-116); Anion Gap 8 (7-16); Aspartate Amino Transferase 37 U/L (0-34); BUN/Creatinine Ratio 8 Ratio (12-20); Bilirubin,Total 0.4 mg/dL (0.3-1.2); Blood Urea Nitrogen 10 mg/dL (9-23); Calcium 9.2 mg/dL (8.3-10.6); Calcium (Corrected) 9.2 mg/dL (8.5-10.1); Carbon Dioxide 25.1 mMol/L (20.0-31.0); Chloride 90 mMol/L (98-107); Creatinine (Component) 1.3 mg/dL (0.6-1.3); Estimated Creatinine Clearance 27.2 mL/min (>60); Globulin 2.8 gm/dL (2.3-3.5); Glucose 308 mg/dL (74-106); Magnesium 2.7 mg/dL (1.6-2.6); Osmolality,Calculated 258 (275-295); Phosphorous 2.4 mg/dL (2.4-5.1); Potassium 4.5 mMol/L (3.4-5.1); Sodium 123 mMol/L (136-145); Thyroid Stimulating Hormone 0.56 uIU/mL (0.55-4.78); Total Protein 6.8 gm/dL (5.7-8.2); eGFR 40 See Note
[2024-12-26] MEDS: INSULIN LISPRO (AdmeLOG) 1 UNIT/0.01 ML UNIT SC ×3 (08:00→17:53)
[2024-12-26] MEDS: PIPER/TAZO 3.375 GM PREMIX 3.375 GM/50 ML BAG IV (08:00)
[2024-12-26 08:59] LABS: Reflex Lactate? Y
[2024-12-26 09:02] LABS: Cardiac Risk Estimate 3.8 RATIO (3.7-5.6); Cholesterol 107 mg/dL (132-200); HDL Cholesterol 28 mg/dL (40-60); LDL Cholesterol,Calculated 38 mg/dL (0-130); Triglycerides 207 mg/dL (30-150)
[2024-12-26 09:34] LABS: Lactic Acid, 3 HR 3.9 mMol/L (0.4-2.0)
[2024-12-26] MEDS: INSULIN DEGLUDEC 5 UNIT/0.05 ML (PER 5 UNITS) 10 UNIT SC (09:50)
[2024-12-26] MEDS: SODIUM CHLORIDE 0.9% 1000 ML 1,000 ML 80 ML IV (09:50)
[2024-12-26 09:57] LABS: Path Review Blood Smear Sent to Pathologist
--- NOTE | 2024-12-26 10:00 | PC.SS ---
CIVIL ENGINEERING SPECIALIST conducted bedside contact with the patient conduct initial assessment and to discuss discharge planning.? At bedside with patient was grandson, Lyndon Merritt.? Patient is Tamazight speaking.? Grandson provided information for assessment and discharge planning.? Patient resides at home with son, Nicholas Gurrola.? Patient is blind, per grandson; lost eye sight approximately 3 years ago.? Patient utilizes a walker to assist with ambulation. Patient does not utilize home oxygen.? Patient requires assistance with the completion of ADL?s.? Family provides assistance with ADL?s and provide transportation on behalf of the patient.? Patient?s medical surrogate decision maker is daughter, Dorcas Auguste .? Patient?s PCP is Rosa Silva.? Grandson reports patient is aligned with cardiology services and nephrology.? Could not recall names of providers.? Patient does not participate with dialysis.? Patient utilizes [facility] for medication services.? Discharge plan is for the patient to return home at the time of discharge.? Family will provide transportation on behalf of the patient.? No discharge needs identified by the patient. ?No further intervention required at this time, social media marketing analyst will be available to address any further concerns.? Next of Kin: Dorcas Auguste D/C Plan: Home
[2024-12-26 10:41] LABS: Sodium 126 mMol/L (136-145)
[2024-12-26] MEDS: PIPER/TAZO INJ 4.5 GM in SODIUM CHLORIDE 0.9% (POP) 100 ML IV ×2 (13:53→20:59)
[2024-12-26] MEDS: ACETAMINOPHEN 325 MG TABLET 650 MG PO (13:54)
--- NOTE | 2024-12-26 14:03 | ESPR_ITS ---
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 In addition, patient also noted to have acute hypoxic respiratory failure however improving.I reviewed above note and agree with findings and plans. I have also personally examined the patient with medicine team and went over assessment and plan with medical team including planner intern and resident physician. <Statement entered by Marly Perera MD - 12/26/24 15:07> Patient was seen and examined by me personally. I have directly supervised and reviewed documentation by the team resident and agree with its findings with any exceptions or additional findings as below. Plan of care was discussed with the attending, Dr. Bustos. New overnight admit. 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 Blood cultures and urine cultures are growing preliminary gram negative rods. Patient continued to spike fever to 101.5 with tachycardia to the 130s and respiratory rate 20s. Zosyn dose was uptitrated to bacteremia dosing, 4.5 g q8h for creatinine clearance of 27.2. MRSA screen ordered. Lactic acid downtrended from 4.4->4.1->3.9->3.3 and will continue to trend. Normal saline IV fluids were added at 90 ml/hr and sodium improved to 126, will continue to trend. Patient passed a swallow exam and started on liquid diet. Will monitor closely and continue to follow culture results. Marly Perera, PGY-3 Documentation for date of: 12/26/24 Subjective Subjective Interval history: Patient was admitted overnight. Patient was examined at bedside; they appear A&Ox1 (oriented to self but believes they are in their own bedroom and cannot tell what year it is) and in NAD. Vitals/labs today significant for HR 114, RR 22, WBC 39.6->42.3, sodium 122->123 (later up-trended to 126), creatinine 1.3, glucose 308, lactic acid 3.5->4.1 (later down-trended to 3.3 by 1630), procalcitonin 5.29. UA showed - (1+ protein, 3+ glucose, 2+ blood, 1+ bacteria, negative for nitrites and LE). Physical exam notable for some mild bilateral wheezing and generalized abdominal tenderness to palpation but was otherwise benign and unremarkable (no CVA tenderness either). 12/25 blood Cx grew GNR in 2/2 bottles (aerobic and anaerobic) and / urine Cx grew >100,000 colonies/mL GNR, suggesting GNR bacteremia 2/2 GNR pyelonephritis. Zosyn has been increased from 3.375 g TID to 4.5 g TID to reflect standard renal dosing for bacteremia (CrCl 27.2). Sodium is adequately correcting via IV NS fluid infusion (122->126) and has currently hit the target of 4-6 mEq increase over 24 hours. Otherwise, patient seems to be clinically improving and is no longer requiring BiPAP like she did upon admission. Exam Vital Signs Temp Pulse Resp BP Pulse Ox O2 Del Method O2 Flow Rate 101.5 F H 131 H 24 H 167/100 H 95 Room Air 1 12/26/24 12:00 12/26/24 12:00 12/26/24 12:00 12/26/24 12:00 12/26/24 12:00 12/26/24 12:00 12/26/24 08:00 FiO2 30 12/26/24 08:00 Narrative Exam General: A&O x 1, appears confused (corroborated by grandson who was present at time of interview), Upper Sorbian-speaking HEENT: NC/AT, mucous membranes moist, bilateral sclera anicteric Cardiovascular: regular rate and rhythm, S1/S2 present, no murmurs appreciated Pulmonary: Mild bilateral wheezing, no rales/rhonchi/use of respiratory accessory muscles Abdominal: Soft, generalized tenderness to palpation, distended, no rebound/guarding, normal bowel sounds present Musculoskeletal: normal ROM, no peripheral edema Skin: Appears very warm but is dry with skin intact and no rashes, Neuro: Uncooperative and unable to follow directions Objective Labs 12/26/24 15:40 12/26/24 13:52 Labs: Laboratory Results - last 24 hr 12/25/24 12/25/24 12/25/24 17:59 18:00 18:38 WBC 39.6 H* RBC 3.77 L Hgb 11.2 L Hct 32.5 L MCV 86 MCH 29.7 MCHC 34.5 RDW Std Deviation 44.5 Plt Count 433 Neut % (Auto) 90 H Lymph % (Auto) 4 L [place] % (Auto) 4 Eos % (Auto) 0 Baso % (Auto) 0 Neut # (Auto) 35.8 H Lymph # (Auto) 1.6 [place] # (Auto) 1.6 H Eos # (Auto) 0.0 Baso # (Auto) 0.1 Immature Gran # (Auto) 0.52 H Absolute Nucleated RBC 0.02 H Immature Gran % 1 H Nucleated RBC % 0 Smear Path Review Sent to Pathologist PT 11.4 INR 1.1 APTT 30.2 VBG pH VBG pCO2 VBG pO2 VBG O2 Sat (Christian) VBG Base Excess Sodium 121 L Potassium 5.0 Chloride 85 L Carbon Dioxide 21.5 Anion Gap 15 BUN 21 Creatinine 1.8 H Estim Creat Clear Calc 19.3 L eGFR 27 L BUN/Creatinine Ratio 12 Glucose 268 H Calculated Osmolality 256 L Lactic Acid 8.2 H* Calcium 9.2 Corrected Calcium 9.2 Phosphorus 3.1 Magnesium 1.3 L Total Bilirubin 0.4 AST 26 ALT 24 Alkaline Phosphatase 108 Lactate Dehydrogenase 227 Troponin I < 0.020 B-Natriuretic Peptide 73 Total Protein 6.8 Albumin 4.2 Globulin 2.6 Albumin/Globulin Ratio 1.6 Triglycerides Cholesterol LDL Cholesterol, Calc HDL Cholesterol Cholesterol/HDL Ratio Lipase 23 Procalcitonin 5.29 H TSH Ur Collection Type Clean Catch Urine Color Lt-Yellow Urine Clarity Clear Urine pH 5.5 Ur Specific [place] 1.009 Urine Protein 1+ A Urine Glucose (UA) 3+ A Urine Ketones Trace Urine Blood 2+ A Urine Nitrite Negative Urine Bilirubin Negative Urine Urobilinogen (Auto) Negative Ur Leukocyte Esterase Negative Urine RBC 1 Urine WBC 4 Ur Squamous Epith Cells < 1 Urine Bacteria 1+ A Hyaline Casts < 1 Ur Culture Indicated? Yes Influenza A (Rapid) Negative Influenza B (Rapid) Negative 12/25/24 12/26/24 12/26/24 21:32 01:50 05:40 WBC 42.3 H* RBC 3.83 L Hgb 11.6 L Hct 32.6 L MCV 85 MCH 30.3 MCHC 35.6 RDW Std Deviation 43.3 Plt Count 362 D Neut % (Auto) 93 H Lymph % (Auto) 1 L [place] % (Auto) 4 Eos % (Auto) 0 Baso % (Auto) 0 Neut # (Auto) 39.2 H Lymph # (Auto) 0.5 L [place] # (Auto) 1.7 H Eos # (Auto) 0.0 Baso # (Auto) 0.1 Immature Gran # (Auto) 0.73 H Absolute Nucleated RBC 0.00 Immature Gran % 2 H Nucleated RBC % 0 Smear Path Review Sent to Pathologist PT INR APTT VBG pH 7.43 VBG pCO2 34 L VBG pO2 39 VBG O2 Sat (Christian) 79 L VBG Base Excess -2 Sodium 122 L 126 L 123 L Potassium 4.9 4.5 Chloride 91 L 90 L Carbon Dioxide 19.2 L 25.1 Anion Gap 12 8 BUN 12 10 Creatinine 1.3 D 1.3 Estim Creat Clear Calc 26.8 L 27.2 L eGFR 40 L 40 L BUN/Creatinine Ratio 9 L 8 L Glucose 270 H 308 H Calculated Osmolality 255 L 258 L Lactic Acid 3.5 H 4.4 H* 4.1 H* Calcium 8.7 9.2 Corrected Calcium 9.2 Phosphorus 2.4 Magnesium 2.7 H Total Bilirubin 0.4 AST 37 H ALT 20 Alkaline Phosphatase 106 Lactate Dehydrogenase Troponin I B-Natriuretic Peptide Total Protein 6.8 Albumin 4.0 Globulin 2.8 Albumin/Globulin Ratio 1.4 Triglycerides 207 H Cholesterol 107 L LDL Cholesterol, Calc 38 HDL Cholesterol 28 L Cholesterol/HDL Ratio 3.8 Lipase Procalcitonin TSH 0.56 Ur Collection Type Urine Color Urine Clarity Urine pH Ur Specific [place] Urine Protein Urine Glucose (UA) Urine Ketones Urine Blood Urine Nitrite Urine Bilirubin Urine Urobilinogen (Auto) Ur Leukocyte Esterase Urine RBC Urine WBC Ur Squamous Epith Cells Urine Bacteria Hyaline Casts Ur Culture Indicated? Influenza A (Rapid) Influenza B (Rapid) 12/26/24 12/26/24 09:21 09:24 WBC RBC Hgb Hct MCV MCH MCHC RDW Std Deviation Plt Count Neut % (Auto) Lymph % (Auto) [place] % (Auto) Eos % (Auto) Baso % (Auto) Neut # (Auto) Lymph # (Auto) [place] # (Auto) Eos # (Auto) Baso # (Auto) Immature Gran # (Auto) Absolute Nucleated RBC Immature Gran % Nucleated RBC % Smear Path Review PT INR APTT VBG pH VBG pCO2 VBG pO2 VBG O2 Sat (Christian) VBG Base Excess Sodium 126 L Potassium Chloride Carbon Dioxide Anion Gap BUN Creatinine Estim Creat Clear Calc eGFR BUN/Creatinine Ratio Glucose Calculated Osmolality Lactic Acid 3.9 H Calcium Corrected Calcium Phosphorus Magnesium Total Bilirubin AST ALT Alkaline Phosphatase Lactate Dehydrogenase Troponin I B-Natriuretic Peptide Total Protein Albumin Globulin Albumin/Globulin Ratio Triglycerides Cholesterol LDL Cholesterol, Calc HDL Cholesterol Cholesterol/HDL Ratio Lipase Procalcitonin TSH Ur Collection Type Urine Color Urine Clarity Urine pH Ur Specific [place] Urine Protein Urine Glucose (UA) Urine Ketones Urine Blood Urine Nitrite Urine Bilirubin Urine Urobilinogen (Auto) Ur Leukocyte Esterase Urine RBC Urine WBC Ur Squamous Epith Cells Urine Bacteria Hyaline Casts Ur Culture Indicated? Influenza A (Rapid) Influenza B (Rapid) ABG Interpretation ABG results: 12/25/24 21:32 VBG pH 7.43 VBG pCO2 34 L VBG pO2 39 VBG Base Excess -2 Quality Measures Quality Measures VTE prophylaxis Advance care planning discussed with:: patient Assessment & Plan Assessment Current Active Medications: Generic Name Dose Route Start Last Admin Trade Name Freq PRN Reason Stop Dose Admin Acetaminophen 650 mg 12/25/24 22:06 Acetaminophen 325 Mg Tablet PO 01/24/25 22:05 Q6H PRN PAIN OR FEVER > 100.4 Dextrose 25 ml 12/25/24 22:21 Dextrose 50%-Water Inj 50 Ml Syringe IV 01/24/25 22:20 Q15MIN PRN BG 50-70 responsive npo pt Dextrose 50 ml 12/25/24 22:21 Dextrose 50%-Water Inj 50 Ml Syringe IV 01/24/25 22:20 Q15MIN PRN BG <50 OR BG <70 & pt unresponsive Glucagon 1 mg 12/25/24 22:21 Glucagon Inj 1 Mg Vial IM Q15MIN PRN BG <70, and no IV access Heparin Sodium (Porcine) 5,000 unit 12/25/24 22:15 12/26/24 05:22 Heparin Sod Inj 5000 Unit/Ml Vial SC 01/08/25 22:14 5,000 unit Q8HR LAURA Administration Sodium Chloride 1,000 mls @ 80 mls/hr 12/26/24 07:45 12/26/24 09:50 Ns IV 12/26/24 20:14 80 mls/hr .[id number] Administration Piperacillin Sod/Tazobactam 100 mls @ 200 mls/hr 12/26/24 14:00 Sod 4.5 gm/ Sodium Chloride IV 01/02/25 13:59 Q8HR LAURA Protocol Insulin Human Lispro 0 unit 12/26/24 07:30 12/26/24 12:02 Insulin Lispro (Admelog) 1 Unit/0.01 Ml Unit SC 01/25/25 07:29 3 unit AC LAURA Administration Protocol Levalbuterol HCl 1.25 mg 12/26/24 04:54 Levalbuterol Rt 1.25 Mg/0.5 Ml Nebu INH 01/25/25 05:59 Q6HR PRN wheezing Ondansetron HCl 4 mg 12/25/24 22:06 Ondansetron Inj 2 Mg/Ml Inj 2 Ml IVP 01/24/25 22:05 Q6H PRN NAUSEA OR VOMITING Protocol Sodium Chloride 3 ml 12/25/24 23:56 12/26/24 00:44 Sodium Chloride Rt Dianelys 0.9% 3 Ml Nebu INH 01/24/25 23:55 3 ml PRN PRN Administration SOLN Sodium Chloride 3 ml 12/26/24 04:54 Sodium Chloride Rt Dianelys 0.9% 3 Ml Nebu INH 01/25/25 04:53 PRN PRN SOLN Plan 84-year-old female with a history of hypertension, hyperlipidemia, type 2 diabetes mellitus, and blindness in both eyes due to diabetic neuropathy, presented to the ED after an outpatient evaluation for fever, chills, urinary symptoms, and flank pain. Patient admitted for sepsis 03/25 to pylenonephritis. #Sepsis #GNR bacteremia 03/25 #GNR pyelonephritis and complicated UTI #Altered mental status #Leukocytosis #Lactic acidosis, resolving Febrile 102.9 on admission Admission WBC 39.6, up-trended to 42.3 in the morning of 12/26 despite being on Zosyn 3.375 g IV TID Procal 5.29, presence of end organ damage in the form of altered mental status Lactic acid 8.2, repeat 3.5 UA unremarkable CTAP showed significant left perinephric stranding Dx: -12/25 UCx ordered, grew GNR -12/25 BCx ordered, preliminary growth of GNR in 2/2 bottles (aerobic and anaerobic) -12/25 echo ordered, showed ___ Rx: -IV Zosyn 4.5 g TID [12/25--] #Acute hypoxic respiratory failure, resolving Likely 2/2 to tiring out due to increased RR BNP 73 VBG showed pH 7.43, pCO2 34. Rx: -Supplemental O2 as needed (no longer requiring BiPAP) #Hypotonic hyponatremia Hypovolemic Na 121, but with correction for hyperglycemia 123 Osmolarity 256 12/26 sodium 122->126 (within acceptable boundaries of correction) Rx: -Sodium checks q4HR -Avoid overcorrection, aim for 4-6 mEq increase in Na over first 24 hrs #JALYN, likely prerenal i/s/o sepsis, improving 12/25 admission creatinine 1.8 (baseline unknown but was 0.7 on 01/27/23) Most likely pre-renal in the setting of sepsis 12/26 creatinine 1.8->1.3 Rx: -IV fluid resuscitation -Monitor renal function panel #T2DM, non-insulin dependent Dx: -12/25 HgbA1c level ordered, showed ___ Rx: -Insulin sliding scale Health Maintenance: Diet: NPO GI prophylaxis: Not Indicated DVT prophylaxis: Heparin 5000u q8h Antibiotics: Zosyn CODE STATUS: FULL Disposition: TELE Case discussed with my attending Dr. Bustos, and senior resident, Dr. Dilma Garibay, DO PGY-1
[2024-12-26 14:16] LABS: Lactate (Lactic Acid) 3.3 mMol/L (0.4-2.0)
[2024-12-26 14:30] LABS: Sodium 126 mMol/L (136-145)
[2024-12-26 15:51] LABS: Basophils # (Auto) 0.1 Thou/mm3 (0.0-0.2); Basophils % (Auto) 0 % (0-2.5); Eosinophils # (Auto) 0.0 Thou/mm3 (0.0-0.5); Eosinophils % (Auto) 0 % (0-10); Hematocrit 28.8 % (36.0-46.0); Hemoglobin 10.3 g/dL (12.0-16.0); Immature Granulocytes Auto 0.38 Thou/mm3 (0.00-0.00); Lymphocytes # (Auto) 0.6 Thou/mm3 (1.0-4.8); Lymphocytes % (Auto) 2 % (10-50); Mean Corpuscular HGB Conc 35.8 g/dl (31.0-37.0); Mean Corpuscular Hemoglobin 29.6 pg (25.0-35.0); Mean Corpuscular Volume 83 fL (80-100); Monocytes # (Auto) 1.6 Thou/mm3 (0.0-0.8); Monocytes % (Auto) 5 % (0-12); Neutrophils # (Auto) 29.5 Thou/mm3 (1.8-7.7); Neutrophils % (Auto) 92 % (37-80); Nucleated Red Blood Cell # 0.00 Thou/mm3 (0.00-0.00); Nucleated Red Blood Cell % 0 /100 WBC (0); Platelet Count 323 Thou/mm3 (140-440); RDW Standard Deviation 41.6 fL (36.4-46.3); Red Blood Count 3.48 Miln/mm3 (4.00-5.20); White Blood Count 32.2 Thou/mm3 (3.6-11.0)
[2024-12-26 17:28] LABS: Reflex Lactate? Y
--- NOTE | 2024-12-26 19:40 | PC.NURSE ---
Per Penelope GASTON Charge Nurse daughter is ok to stay overnight as a caregiver for patient
[2024-12-26 19:59] LABS: Lactic Acid, 3 HR 3.2 mMol/L (0.4-2.0)
[2024-12-26 20:15] LABS: Sodium 128 mMol/L (136-145)
[2024-12-26 22:50] LABS: Sodium 127 mMol/L (136-145)
[2024-12-27] VITALS (11 sets, daily range): BP systolic 118–164; BP diastolic 65–97; PULSE 91–109; RESP 17–96; TEMP 36.2–37.3; O2SAT 92–99; BMI 32.8
[2024-12-27] MEDS: PIPER/TAZO INJ 4.5 GM in SODIUM CHLORIDE 0.9% (POP) 100 ML IV (05:17)
[2024-12-27] MEDS: HEPARIN SOD INJ 5000 UNIT/ML VIAL SC ×3 (05:17→20:58)
[2024-12-27 06:15] LABS: Basophils # (Auto) 0.0 Thou/mm3 (0.0-0.2); Basophils % (Auto) 0 % (0-2.5); Eosinophils # (Auto) 0.4 Thou/mm3 (0.0-0.5); Eosinophils % (Auto) 2 % (0-10); Hematocrit 32.0 % (36.0-46.0); Hemoglobin 11.3 g/dL (12.0-16.0); Immature Granulocytes Auto 0.19 Thou/mm3 (0.00-0.00); Lymphocytes # (Auto) 0.7 Thou/mm3 (1.0-4.8); Lymphocytes % (Auto) 3 % (10-50); Mean Corpuscular HGB Conc 35.3 g/dl (31.0-37.0); Mean Corpuscular Hemoglobin 29.7 pg (25.0-35.0); Mean Corpuscular Volume 84 fL (80-100); Monocytes # (Auto) 1.3 Thou/mm3 (0.0-0.8); Monocytes % (Auto) 5 % (0-12); Neutrophils # (Auto) 20.6 Thou/mm3 (1.8-7.7); Neutrophils % (Auto) 89 % (37-80); Nucleated Red Blood Cell # 0.00 Thou/mm3 (0.00-0.00); Nucleated Red Blood Cell % 0 /100 WBC (0); Platelet Count 349 Thou/mm3 (140-440); RDW Standard Deviation 42.9 fL (36.4-46.3); Red Blood Count 3.81 Miln/mm3 (4.00-5.20); White Blood Count 23.2 Thou/mm3 (3.6-11.0)
[2024-12-27 06:34] LABS: Alanine Aminotransferase 17 U/L (10-49); Albumin, Serum 3.9 gm/dL (3.4-4.8); Albumin/Globulin Ratio 1.6 (1.2-2.2); Alkaline Phosphatase 93 U/L (46-116); Anion Gap 10 (7-16); Aspartate Amino Transferase 29 U/L (0-34); BUN/Creatinine Ratio 8 Ratio (12-20); Bilirubin,Total 0.3 mg/dL (0.3-1.2); Blood Urea Nitrogen 8 mg/dL (9-23); Calcium 8.8 mg/dL (8.3-10.6); Calcium (Corrected) 8.9 mg/dL (8.5-10.1); Carbon Dioxide 24.2 mMol/L (20.0-31.0); Chloride 93 mMol/L (98-107); Creatinine (Component) 1.0 mg/dL (0.6-1.3); Estimated Creatinine Clearance 35.3 mL/min (>60); Globulin 2.4 gm/dL (2.3-3.5); Glucose 238 mg/dL (74-106); Magnesium 2.0 mg/dL (1.6-2.6); Osmolality,Calculated 261 (275-295); Phosphorous 2.0 mg/dL (2.4-5.1); Potassium 3.7 mMol/L (3.4-5.1); Sodium 127 mMol/L (136-145); Total Protein 6.3 gm/dL (5.7-8.2); eGFR 55 See Note
[2024-12-27 06:36] LABS: Glucose Estimated Average 189 mg/dL (80-131); Hemoglobin A1C 8.2 % Hgb (4.8-6.0)
[2024-12-27] MEDS: INSULIN LISPRO (AdmeLOG) 1 UNIT/0.01 ML UNIT SC ×3 (08:15→17:33)
[2024-12-27] MEDS: POTASSIUM CHLORIDE 10% 20 MEQ/15 ML UDC 40 MEQ PO (08:16)
[2024-12-27] MEDS: INSULIN DEGLUDEC 5 UNIT/0.05 ML (PER 5 UNITS) 10 UNIT SC (08:17)
[2024-12-27] MEDS: SODIUM CHLORIDE 0.9% 1000 ML 1,000 ML 75 ML IV ×2 (08:18→20:56)
[2024-12-27 08:45] LABS: Lactate (Lactic Acid) 1.7 mMol/L (0.4-2.0)
--- NOTE | 2024-12-27 08:55 | PC.SS ---
Update: Patient receiving IV antibiotics. D/C within 1-2 days.
[2024-12-27] MEDS: cefTRIAXone 2 GM in SODIUM CHLORIDE 0.9% (Popper) 50 ML IV (10:41)
[2024-12-27] MEDS: ACETAMINOPHEN 325 MG TABLET 650 MG PO ×2 (10:41→20:59)
[2024-12-27] MEDS: LEVALBUTEROL RT 1.25 MG/0.5 ML NEBU INH (10:54)
[2024-12-27 11:17] LABS: Chloride,Urine Random 88.1 mMol/L (55.0-125.0); Potassium,Urine Random 30 mMol/L (12-62); Sodium,Urine Random 95.7 mMol/L (20.0-110.0)
--- NOTE | 2024-12-27 11:31 | ESPR_ITS ---
<Statement entered by Giovani Bustos MD - 01/10/25 07:51> I reviewed above note and agree with findings and plans. I have also personally examined the patient with medicine team and went over assessment and plan with medical team including culinary internship and resident physician. <Statement entered by Marly Perera MD - 12/27/24 16:28> Patient was seen and examined by me personally. I have directly supervised and reviewed documentation by the team resident and agree with its findings with any exceptions or additional findings as below. Plan of care was discussed with the attending, Dr. Bustos. Patient has clinical improvement overall with improving labs, WBC downtrending from 32.2 yesterday afternoon to 23.2 this morning. Lactic acid downtrended to 1.7. Creatinine continues to improve from 1.3 to 1.0. Tachycardia improved from the 130s yesterday and was in the 100s today. No further fevers. Urine culture shows E. coli only resistant to ampicillin, tetracycline, and Bactrim. Blood cultures show preliminary GNR and will follow up. Zosyn was downgraded to ceftriaxone 2 g qday based on results. Patient was given lactulose for constipation. Anticipate 1-2 days for discharge. Marly Perera, PGY-3 Documentation for date of: 12/27/24 Subjective Subjective Interval history: No overnight events. Patient was examined at bedside; they appear A&Ox2 (not oriented to year or month) and in NAD. Today, she complains of pain all over her body including her abdomen which she attributes to not having had a BM since Tuesday. Vitals/labs today significant for BP 161/93, HR 102, SpO2 92%, WBC 32.2- >23.2, Hgb 10.3->11.3, sodium 127 (later became 131), potassium 3.7, creatinine 1.3->1.0, glucose 238 (gave Degludec 10 mg x 1), A1c 8.2, lactic-acid down- trended to 1.7, phosphorus 2.0. Physical exam notable for mild diffuse crackles bilateral but was otherwise benign and unchanged from day prior. 12/25 UCx grew nearly murdock-sensitive E. coli resistant only to ampicillin, tetracycline, and Bactrim. 12/25 BCx show preliminary growth of GNR but final results are pending. Antibiotic regimen for treatment of patient's E. coli bacteremia / E. coli pyelonephritis was de-escalated from Zosyn to Rocephin 2 g IV qD based upon sensitivities. Otherwise, patient's sodium is being adequately corrected and she will be given lactulose to alleviate her constipation with plans to discharge her within 1-2 days. Exam Vital Signs Temp Pulse Resp BP Pulse Ox O2 Del Method O2 Flow Rate 99.2 F 105 H 20 161/93 H 99 Room Air 1 12/27/24 07:51 12/27/24 10:55 12/27/24 10:55 12/27/24 07:51 12/27/24 10:55 12/27/24 07:51 12/26/24 08:00 FiO2 30 12/26/24 08:00 Narrative Exam General: A&O x 2, appears confused (assessed by patient's daughter who was present at time of interview), Dominican-speaking HEENT: NC/AT, mucous membranes moist, bilateral sclera anicteric Cardiovascular: Regular rate and rhythm, S1/S2 present, no murmurs appreciated Pulmonary: LFCTAB. No rales/rhonchi/use of respiratory accessory muscles Abdominal: Soft, generalized tenderness to palpation, distended, no rebound/guarding, normal bowel sounds present Musculoskeletal: normal ROM, no peripheral edema Skin: Appears very warm but is dry with skin intact and no rashes, Neuro: More cooperative than yesterday but still not able to fully comply with directions Objective Labs 12/27/24 05:36 12/27/24 16:50 Labs: Laboratory Results - last 24 hr 12/26/24 12/26/24 12/26/24 13:52 15:40 19:42 WBC 32.2 H D RBC 3.48 L Hgb 10.3 L Hct 28.8 L MCV 83 MCH 29.6 MCHC 35.8 RDW Std Deviation 41.6 Plt Count 323 D Neut % (Auto) 92 H Lymph % (Auto) 2 L [place] % (Auto) 5 Eos % (Auto) 0 Baso % (Auto) 0 Neut # (Auto) 29.5 H Lymph # (Auto) 0.6 L [place] # (Auto) 1.6 H Eos # (Auto) 0.0 Baso # (Auto) 0.1 Immature Gran # (Auto) 0.38 H Absolute Nucleated RBC 0.00 Immature Gran % 1 H Nucleated RBC % 0 Sodium 126 L 128 L Potassium Chloride Carbon Dioxide Anion Gap BUN Creatinine Estim Creat Clear Calc eGFR BUN/Creatinine Ratio Glucose Estimated Ave Glu mg/dL Hemoglobin A1c Calculated Osmolality Lactic Acid 3.3 H 3.2 H Calcium Corrected Calcium Phosphorus Magnesium Total Bilirubin AST ALT Alkaline Phosphatase Total Protein Albumin Globulin Albumin/Globulin Ratio Ur Random Sodium Ur Random Potassium Ur Random Chloride 12/26/24 12/27/24 12/27/24 22:00 05:36 08:32 WBC 23.2 H D RBC 3.81 L Hgb 11.3 L Hct 32.0 L MCV 84 MCH 29.7 MCHC 35.3 RDW Std Deviation 42.9 Plt Count 349 Neut % (Auto) 89 H Lymph % (Auto) 3 L [place] % (Auto) 5 Eos % (Auto) 2 Baso % (Auto) 0 Neut # (Auto) 20.6 H Lymph # (Auto) 0.7 L [place] # (Auto) 1.3 H Eos # (Auto) 0.4 Baso # (Auto) 0.0 Immature Gran # (Auto) 0.19 H Absolute Nucleated RBC 0.00 Immature Gran % 1 H Nucleated RBC % 0 Sodium 127 L 127 L Potassium 3.7 D Chloride 93 L Carbon Dioxide 24.2 Anion Gap 10 BUN 8 L Creatinine 1.0 Estim Creat Clear Calc 35.3 L eGFR 55 L BUN/Creatinine Ratio 8 L Glucose [address] Glu mg/dL 189 H Hemoglobin A1c 8.2 H Calculated Osmolality 261 L Lactic Acid 1.7 Calcium 8.8 Corrected Calcium 8.9 Phosphorus 2.0 L Magnesium 2.0 Total Bilirubin 0.3 AST 29 ALT 17 Alkaline Phosphatase 93 Total Protein 6.3 Albumin 3.9 Globulin 2.4 Albumin/Globulin Ratio 1.6 Ur Random Sodium Ur Random Potassium Ur Random Chloride 12/27/24 10:08 WBC RBC Hgb Hct MCV MCH MCHC RDW Std Deviation Plt Count Neut % (Auto) Lymph % (Auto) [place] % (Auto) Eos % (Auto) Baso % (Auto) Neut # (Auto) Lymph # (Auto) [place] # (Auto) Eos # (Auto) Baso # (Auto) Immature Gran # (Auto) Absolute Nucleated RBC Immature Gran % Nucleated RBC % Sodium Potassium Chloride Carbon Dioxide Anion Gap BUN Creatinine Estim Creat Clear Calc eGFR BUN/Creatinine Ratio Glucose Estimated Ave Glu mg/dL Hemoglobin A1c Calculated Osmolality Lactic Acid Calcium Corrected Calcium Phosphorus Magnesium Total Bilirubin AST ALT Alkaline Phosphatase Total Protein Albumin Globulin Albumin/Globulin Ratio Ur Random Sodium 95.7 Ur Random Potassium 30 Ur Random Chloride 88.1 ABG Interpretation ABG results: 12/25/24 21:32 VBG pH 7.43 VBG pCO2 34 L VBG pO2 39 VBG Base Excess -2 Quality Measures Quality Measures VTE prophylaxis Advance care planning discussed with:: patient Assessment & Plan Assessment Current Active Medications: Generic Name Dose Route Start Last Admin Trade Name Freq PRN Reason Stop Dose Admin Acetaminophen 650 mg 12/25/24 22:06 12/27/24 10:41 Acetaminophen 325 Mg Tablet PO 01/24/25 22:05 650 mg Q6H PRN Administration PAIN OR FEVER > 100.4 Dextrose 25 ml 12/25/24 22:21 Dextrose 50%-Water Inj 50 Ml Syringe IV 01/24/25 22:20 Q15MIN PRN BG 50-70 responsive npo pt Dextrose 50 ml 12/25/24 22:21 Dextrose 50%-Water Inj 50 Ml Syringe IV 01/24/25 22:20 Q15MIN PRN BG <50 OR BG <70 & pt unresponsive Glucagon 1 mg 12/25/24 22:21 Glucagon Inj 1 Mg Vial IM Q15MIN PRN BG <70, and no IV access Heparin Sodium (Porcine) 5,000 unit 12/25/24 22:15 12/27/24 05:17 Heparin Sod Inj 5000 Unit/Ml Vial SC 01/08/25 22:14 5,000 unit Q8HR LAURA Administration Sodium Chloride 1,000 mls @ 75 mls/hr 12/27/24 07:30 12/27/24 08:18 Ns IV 01/26/25 07:29 75 mls/hr .[id number] LAURA Administration Ceftriaxone Sodium 2 gm/ 50 mls @ 100 mls/hr 12/27/24 10:10 12/27/24 10:41 Sodium Chloride IV 01/03/25 10:09 100 mls/hr QDAY LAURA Administration Insulin Human Lispro 0 unit 12/26/24 07:30 12/27/24 08:15 Insulin Lispro (Admelog) 1 Unit/0.01 Ml Unit SC 01/25/25 07:29 2 unit AC LAURA Administration Protocol Levalbuterol HCl 1.25 mg 12/26/24 04:54 12/27/24 10:54 Levalbuterol Rt 1.25 Mg/0.5 Ml Nebu INH 01/25/25 05:59 1.25 mg Q6HR PRN Administration wheezing Ondansetron HCl 4 mg 12/25/24 22:06 Ondansetron Inj 2 Mg/Ml Inj 2 Ml IVP 01/24/25 22:05 Q6H PRN NAUSEA OR VOMITING Protocol Sodium Chloride 3 ml 12/25/24 23:56 12/26/24 00:44 Sodium Chloride Rt Dianelys 0.9% 3 Ml Nebu INH 01/24/25 23:55 3 ml PRN PRN Administration SOLN Sodium Chloride 3 ml 12/26/24 04:54 Sodium Chloride Rt Dianelys 0.9% 3 Ml Nebu INH 01/25/25 04:53 PRN PRN SOLN Plan 84-year-old female with a history of hypertension, hyperlipidemia, type 2 diabetes mellitus, and blindness in both eyes due to diabetic neuropathy, presented to the ED after an outpatient evaluation for fever, chills, urinary symptoms, and flank pain. Patient admitted for sepsis 03/25 to pylenonephritis. #Sepsis #E. coli bacteremia 03/25 #E.coli pyelonephritis and complicated UTI #Altered mental status, improving #Leukocytosis, resolving #Lactic acidosis, resolving Febrile 102.9 on admission Admission WBC 39.6, up-trended to 42.3 in the morning of 12/26 despite being on Zosyn 3.375 g IV TID Procal 5.29, presence of end organ damage in the form of altered mental status Lactic acid 8.2, repeat 3.5 UA unremarkable CTAP showed significant left perinephric stranding Dx: -12/25 UCx ordered, grew nearly murdock-sensitive E. coli resistant only to ampicillin, tetracycline, and Bactrim -12/25 BCx ordered, preliminary growth of GNR in 2/2 bottles (aerobic and anaerobic) -12/25 echo ordered, showed ___ Rx: -s/p Zosyn 4.5 g IV TID [12/25-12/26] -Rocephin 2 g IV qD [12/27--] #Acute hypoxic respiratory failure, resolved Likely 2 to tiring out due to increased RR BNP 73 VBG showed pH 7.43, pCO2 34. Rx: -Supplemental O2 as needed (no longer requiring BiPAP) #Hypotonic hyponatremia, resolved Hypovolemic Na 121, but with correction for hyperglycemia 123 Osmolarity 256 12/26 sodium 122->126 (within acceptable boundaries of correction) 12/27 sodium 126->131 #JALYN, likely prerenal i/s/o sepsis, resolved 12/25 admission creatinine 1.8 (baseline unknown but was 0.7 on 01/27/23) Most likely pre-renal in the setting of sepsis 12/26 creatinine 1.8->1.3 12/27 creatinine 1.3->1.0, resolved Rx: -IV fluid resuscitation as appropriate -Monitor renal function panel #Constipation On 12/27, patient complained of abdominal pain and reports not having a BM since 12/23 Rx: -Lactulose 20 gm PO x 1 #T2DM, non-insulin dependent Dx: -12/25 HgbA1c level ordered, showed 8.2 Rx: -Insulin sliding scale Health Maintenance: Diet: Carbohydrate Consistent Low GI prophylaxis: Not Indicated DVT prophylaxis: Heparin 5000u q8h Antibiotics: Zosyn CODE STATUS: FULL Disposition: TELE Case discussed with my attending Dr. Bustos, and senior resident, Dr. Dilma Garibay, DO PGY-1
[2024-12-27] MEDS: LACTULOSE SYRUP 20 GM/30 ML UDC PO (12:01)
--- NOTE | 2024-12-27 16:08 | PC.SS ---
Rounding Note: Patient receiving IV antibiotics. D/C 1-2 days.
[2024-12-27 17:19] LABS: Sodium 131 mMol/L (136-145)
[2024-12-28] VITALS: BP 158/87; PULSE 68; PULSE 85; RESP 22; TEMP 36.4; O2SAT 96
[2024-12-28] MEDS: SODIUM CHLORIDE RT SOL 0.9% 3 ML NEBU INH (00:06)
[2024-12-28] MEDS: LEVALBUTEROL RT 1.25 MG/0.5 ML NEBU INH (00:06)
[2024-12-28 00:10] VITALS: PULSE 198; RESP 18; O2SAT 99
[2024-12-28 04:00] VITALS: BP 174/88; PULSE 92; RESP 27; TEMP 36.2; O2SAT 95
[2024-12-28] MEDS: HEPARIN SOD INJ 5000 UNIT/ML VIAL SC (05:11)
[2024-12-28 06:00] VITALS: BMI 32.3
[2024-12-28 06:23] LABS: Basophils # (Auto) 0.0 Thou/mm3 (0.0-0.2); Basophils % (Auto) 0 % (0-2.5); Eosinophils # (Auto) 0.0 Thou/mm3 (0.0-0.5); Eosinophils % (Auto) 0 % (0-10); Hematocrit 31.8 % (36.0-46.0); Hemoglobin 10.8 g/dL (12.0-16.0); Immature Granulocytes Auto 0.09 Thou/mm3 (0.00-0.00); Lymphocytes # (Auto) 0.7 Thou/mm3 (1.0-4.8); Lymphocytes % (Auto) 6 % (10-50); Mean Corpuscular HGB Conc 34.0 g/dl (31.0-37.0); Mean Corpuscular Hemoglobin 28.8 pg (25.0-35.0); Mean Corpuscular Volume 85 fL (80-100); Monocytes # (Auto) 1.5 Thou/mm3 (0.0-0.8); Monocytes % (Auto) 12 % (0-12); Neutrophils # (Auto) 10.1 Thou/mm3 (1.8-7.7); Neutrophils % (Auto) 81 % (37-80); Nucleated Red Blood Cell # 0.03 Thou/mm3 (0.00-0.00); Nucleated Red Blood Cell % 0 /100 WBC (0); Platelet Count 358 Thou/mm3 (140-440); RDW Standard Deviation 45.2 fL (36.4-46.3); Red Blood Count 3.75 Miln/mm3 (4.00-5.20); White Blood Count 12.4 Thou/mm3 (3.6-11.0)
[2024-12-28 06:49] LABS: Alanine Aminotransferase 22 U/L (10-49); Albumin, Serum 3.6 gm/dL (3.4-4.8); Albumin/Globulin Ratio 1.3 (1.2-2.2); Alkaline Phosphatase 99 U/L (46-116); Anion Gap 8 (7-16); Aspartate Amino Transferase 33 U/L (0-34); BUN/Creatinine Ratio 9 Ratio (12-20); Bilirubin,Total 0.2 mg/dL (0.3-1.2); Blood Urea Nitrogen 8 mg/dL (9-23); Calcium 8.7 mg/dL (8.3-10.6); Calcium (Corrected) 9.0 mg/dL (8.5-10.1); Carbon Dioxide 26.6 mMol/L (20.0-31.0); Chloride 98 mMol/L (98-107); Creatinine (Component) 0.9 mg/dL (0.6-1.3); Estimated Creatinine Clearance 38.9 mL/min (>60); Globulin 2.7 gm/dL (2.3-3.5); Glucose 205 mg/dL (74-106); Magnesium 1.9 mg/dL (1.6-2.6); Osmolality,Calculated 270 (275-295); Phosphorous 2.3 mg/dL (2.4-5.1); Potassium 3.7 mMol/L (3.4-5.1); Sodium 133 mMol/L (136-145); Total Protein 6.3 gm/dL (5.7-8.2); eGFR > 60 See Note
[2024-12-28] MEDS: INSULIN LISPRO (AdmeLOG) 1 UNIT/0.01 ML UNIT SC ×2 (07:49→11:21)
[2024-12-28] MEDS: cefTRIAXone 2 GM in SODIUM CHLORIDE 0.9% (Popper) 50 ML IV (07:49)
[2024-12-28 08:00] VITALS: BP 143/93; PULSE 89; PULSE 91; RESP 16; TEMP 37.1; O2SAT 96
[2024-12-28] MEDS: ACETAMINOPHEN 325 MG TABLET 650 MG PO (09:27)
[2024-12-28 09:43] VITALS: BMI 32.2
[2024-12-28 10:00] VITALS: BP 120/69; PULSE 94
[2024-12-28] MEDS: LOSARTAN POTASSIUM 25 MG TABLET 50 MG PO (10:00)
--- NOTE | 2024-12-28 10:28 | ESDS_ITS ---
<Statement entered by Giovani Bustos MD - 01/10/25 07:54> I reviewed above note and agree with findings and plans. I have also personally examined the patient with medicine team and went over assessment and plan with medical team including internet application developer and resident physician. <Statement entered by Marly Perera MD - 12/29/24 07:31> Patient was seen and examined by me personally. I have reviewed the below documentation by the team resident and agree with its findings with any exceptions as below. Discharge plan was discussed with the attending, Dr. Bustos. Patient recovered well from severe sepsis secondary to gram-negative pyelonephritis. Blood and urine culture showed nearly pansensitive E. coli. Prescription sent for 10 more days of ciprofloxacin. Due to JALYN patient instructed to hold furosemide and hydrochlorothiazide until further follow up with PCP and instructed to take BP every day. Patient was discharged home. 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 Hospital: During patient's hospital course, she was treated with Zosyn IV for 2 days followed by Rocephin IV for 1 day for her sepsis later revealed by UCx and BCx to be 2/2 E. coli bacteremia 2/2 E. coli pyelonephritis and complicated UTI. E. coli organism was found to be nearly murdock-sensitive, resistant only to ampicillin, tetracycline, and Bactrim. At first, patient required BiPAP for adequate oxygenation but she was later weaned off of this. Patient was also t reated with IV NS fluids for slow correction of her hypotonic hyponatremia as well as her initial JALYN likely prerenal 2/2 sepsis. By 12/28, patient was deemed clinically stabilized and discharged. Patient is safe to discharge. Further discharge instructions below. Discharge Recommendations: -Follow up with PCP within 1 week of discharge -Take 10 more days of antibiotics: ciprofloxacin 500 mg twice daily for kidney infection -Take your blood pressure every day -HOLD the following medications until follow up with PCP due to acute kidney injury: ? furosemide 20 mg ? hydrochlorothiazide 25 mg -Continue rest of medications as previously prescribed -Return to the ED or call EMS if symptoms return and/or worsen. #Sepsis #E. coli bacteremia 2/2 #E.coli pyelonephritis and complicated UTI #Altered mental status, improving #Leukocytosis, resolved #Lactic acidosis, resolved #Acute hypoxic respiratory failure, resolved #Hypotonic hyponatremia, resolved #JALYN, likely prerenal i/s/o sepsis, resolved #Constipation #T2DM, non-insulin dependent Status at Discharge Cognitive/Behavioral Status at Discharge: stable Functional Status at Discharge: ambulation using walker with assistance Overall Status at Discharge: patient is back to baseline Patient's care plan was discussed with my attending, Dr. Bustos, and senior resident, Dr. Perera. Mack Garibay, DO Internal Medicine, PGY-1 Time Spent with Patient Time attestation: Total time spent providing and/or coordinating discharge services: Time spent: Greater than 30 minutes Exam Vital Signs Temp Pulse Resp BP Pulse Ox O2 Del Method O2 Flow Rate 98.7 F 94 16 120/69 96 Room Air 1 12/28/24 08:00 12/28/24 10:00 12/28/24 08:00 12/28/24 10:00 12/28/24 08:00 12/28/24 08:00 12/26/24 08:00 FiO2 30 12/26/24 08:00 Narrative Exam General: A&O x 2, appears confused (assessed by patient's daughter who was present at time of interview), Luxembourger-speaking HEENT: NC/AT, mucous membranes moist, bilateral sclera anicteric Cardiovascular: Regular rate and rhythm, S1/S2 present, no murmurs appreciated Pulmonary: LFCTAB. No rales/rhonchi/use of respiratory accessory muscles Abdominal: Soft, generalized tenderness to palpation, distended, no rebound/guarding, normal bowel sounds present Musculoskeletal: normal ROM, no peripheral edema Skin: Appears very warm but is dry with skin intact and no rashes, Neuro: More cooperative than yesterday but still not able to fully comply with directions Discharge Plan Plan Patient Disposition: HOME (Self Care) Patient condition on transfer: Stable Care Plan Goals: Discharge Recommendations: -Follow up with PCP within 1 week of discharge -Take 10 more days of antibiotics: ciprofloxacin 500 mg twice daily for kidney infection -Take your blood pressure every day -HOLD the following medications until follow up with PCP due to acute kidney injury: ? furosemide 20 mg ? hydrochlorothiazide 25 mg -Continue rest of medications as previously prescribed -Return to the ED or call EMS if symptoms return and/or worsen. Prescriptions/Referrals Prescriptions/Med Rec: New ciprofloxacin HCl 500 mg tablet 500 mg PO BID 10 Days Qty: 20 0RF Continued losartan 100 mg Tablet 100 mg PO QDAY latanoprost 0.005 % Drops 1 drp OPHTHALMIC (EYE) HS Rx Instructions: One drop to each eye dorzolamide-timolol 22.3-6.8 mg/mL Drops 1 drp OPHTHALMIC (EYE) BID Rx Instructions: One drop to each eye pantoprazole 40 mg tablet,delayed release (DR/EC) 40 mg PO QDAY Qty: 30 0RF insulin degludec [Tresiba FlexTouch U-100] 100 unit/mL (3 mL) insulin pen 5 unit SUBCUT Q24H PRN (Reason: hyperglycemia) magnesium oxide 400 mg (241.3 mg magnesium) tablet 400 mg PO QDAY atorvastatin 10 mg tablet 10 mg PO HS (DME) True Metrix Glucose Test Strip Strip gabapentin 300 mg capsule 300 mg PO TID cholecalciferol (vitamin D3) [Vitamin D3] 25 mcg (1,000 unit) tablet 25 mcg PO QDAY metformin 500 mg tablet extended release 24 hr 1,000 mg PO BIDAC multivitamin Tablet 1 tab PO QDAY diclofenac sodium [Arthritis Pain (diclofenac)] 1 % gel 2 g topical QID PRN (Reason: pain) Qty: 100 0RF Rx Instructions: instructions in togolese: apply to back and hip Held hydrochlorothiazide 25 mg Tablet 25 mg PO QDAY Hold Instructions: Resume on 01/04/25. Hold until follow up with PCP furosemide 20 mg tablet 20 mg PO Q12H Hold Instructions: Resume on 01/04/25. Hold until follow up with PCP Referrals: Rosa Silva MD [Primary Care Provider] Patient/Caregiver Discharge Instructions Discharge Activity: activity as tolerated Education Materials: Understanding Post Sepsis Syndrome, Urinary Tract Infections in Women, How Your Kidneys Work, Sepsis, Kidney Infec Dc Print Language: Luxembourger Stand Alone Forms: Jacqueline Award Info., Patient Portal Info Letter Discharge Order Discharge Orders: Discharge (Routine); Ordered 12/28/24 Ordered By: Marly Perera Quality Discharge Quality Measures VTE prophylaxis and sepsis
[2024-12-28 12:00] VITALS: BP 149/83; PULSE 90; PULSE 94; RESP 18; TEMP 36.7; O2SAT 98
== END 2024-12-28 14:07 | disposition home or self-care (01) | DRG 720 ==
LOC: SERX 20:41 → SERHOLD 22:25 → S2NX 12-26 04:52
PROVIDERS: Registered Nurse General Practice; Student in an Organized Health Care Education/Training Program; Admitting Provider Internal Medicine; Emergency Provider Emergency Medicine; PCP Family Medicine; Visit Provider Internal Medicine
DX: A41.50 Gram-negative sepsis, unspecified (principal); E11.40 Type 2 diabetes mellitus with diabetic neuropathy, unspecified; E78.5 Hyperlipidemia, unspecified; I10 Essential (primary) hypertension; H54.3 Unqualified visual loss, both eyes; N12 Tubulo-interstitial nephritis, not specified as acute or chronic; J96.01 Acute respiratory failure with hypoxia; R65.20 Severe sepsis without septic shock; E87.20 Acidosis, unspecified; E11.65 Type 2 diabetes mellitus with hyperglycemia; E87.1 Hypo-osmolality and hyponatremia; E86.1 Hypovolemia; N17.9 Acute kidney failure, unspecified; K59.00 Constipation, unspecified; E11.319 Type 2 diabetes mellitus with unspecified diabetic retinopathy without macular edema; Z16.11 Resistance to penicillins; Z79.4 Long term (current) use of insulin; Z79.84 Long term (current) use of oral hypoglycemic drugs; Z79.899 Other long term (current) drug therapy
CPT/HCPCS: 36415; 51701; 51702; 71045; 74176; 80048; 80053; 80061; 81001; 82436; 82803; 83036; 83605; 83615; 83690; 83735; 83880; 84100; 84133; 84145; 84295; 84300; 84443; 84484; 85025; 85610; 85730; 87040; 87077; 87081; 87086; 87186; 87502; 87635; 93005; 93306; 94640; 94660; 96361; 96365; 96366; 96372; 99285; A4314; J0131; J0696; J1644; J1815; J2543; J3475; J7030; J7050; J7120; A9270

== ENCOUNTER 2025-02-14 16:58 | Emergency (ER) | payer MEDICAID, SELFPAY ==
[2025-02-14 17:16] VITALS: BP 136/85; PULSE 82; RESP 18; TEMP 36.6; O2SAT 96; BMI 31.3
--- NOTE | 2025-02-14 17:34 | EKG_ITS ---
[facility] Test Date: 2025-02-14 Pat Name: CLARIBEL GUTIERREZ Department: Room: - Gender: Female Auto Hauler: : 1940 Requested By: Kendell Norman (INTRAVENOUS THERAPY NURSE) Order Number: [id number] Reading MD: Kendell Norman (INTRAVENOUS THERAPY NURSE) Measurements Intervals [place] Rate: 83 P: 43 MN: 164 QRS: 64 QRSD: 78 T: 54 QT: 347 QTc: 408 Interpretive Statements SINUS RHYTHM WITH OCCASIONAL VENTRICULAR PREMATURE COMPLEXES LOW QRS VOLTAGE IN PRECORDIAL LEADS [QRS DEFLECTION < 1.0 mV IN CHEST LEADS] Compared to ECG 01/22/2023 04:02:06 Ventricular premature complex(es) now present Sinus tachycardia no longer present ST (T wave) deviation no longer present /store/S0/[id number]/ecg/[id number].pdf
--- NOTE | 2025-02-14 17:34 | XR_ITS ---
Examination: CT brain head without contrast. 2-D sagittal coronal reconstructions Date and time of exam: February 14, 2025, 1733 hours, comparison January 22, 2023 INDICATIONS: Onset generalized head pain today CTDI: vol (mGy): 48.7 DLP: (mGycm): 937 Technique: Multiple CT axial sections of the brain have been obtained, 5 mm slice thickness. Contrast has not been administered. 2-D sagittal, coronal reconstructions have been obtained Low dose protocols were performed. One or more of the following dose reduction techniques were used; automated exposure control, adjustment of the mA and/or KV according to patient size, use of iterative reconstruction technique. Findings: No significant ventricular enlargement. Again noted significant frontal atrophy Intra-axial or extra-axial hemorrhage density is not seen. No mass effect or midline shift Basal cisterns are not remarkable. Fourth ventricle is midline. Cranial vault intact. 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
--- NOTE | 2025-02-14 17:34 | XR_ITS ---
EXAMINATION: PA lateral chest 2 views TECHNIQUE: Upright PA lateral chest 2 views Date and time: February 14, 2025, 1949 hours INDICATIONS: Chest pain back pain beginning 4 days ago. FINDINGS: Mild prominence left ventricle Ectatic thoracic aorta Increased AP dimension chest Severe osteopenia No interval pneumonia or pulmonary edema IMPRESSION: COPD No pneumonia or pulmonary edema
--- NOTE | 2025-02-14 17:34 | XR_ITS ---
Examination: CT cervical spine without contrast 2-D sagittal reconstructions 2-D coronal reconstructions 3-D reconstructions. Exam date and time: February 14, 2025, 1733 hours INDICATIONS: Onset generalized head pain and neck pain today CTDI:vol (mGy) 15 DLP: (mGycm) 327 Technique: Multiple 2 mm axial sections of the cervical spine have been obtained. The coronal and sagittal reconstructions have been obtained. 3-D reconstructions have been obtained. Low dose protocols were performed. One or more of the following dose reduction techniques were used; automated exposure control, adjustment of the mA and/or KV according to patient size, use of iterative reconstruction technique. Findings: Axial sections demonstrate intact base of the skull. C1 exhibit satisfactory relationship to the odontoid. No acute cervical vertebral body fracture seen. Alignment posterior spinous processes satisfactory. Severe osteopenia Mild cervical spondylosis No significant cervical disc narrowing No neural foraminal stenosis Small soft tissue disc bulges 2 to 3 mm C4-C5, C5-C6 Impression: No acute cervical fracture. Small soft tissue cervical disc bulges C4-C5, C5-C6 If neck pain persists, consider MRI cervical spine without contrast follow-up
--- NOTE | 2025-02-14 17:34 | PD.EDRME ---
Rapid Medical Screening Exam RME Arrival date/time: 02/14/25 16:58 84-year-old female presents to the Emergency Department for complaints of neck pain, chest pain, back pain and head pain Chief Complaint: Back Pain/Injury Vital signs: Vital Signs Temperature 97.8 F 02/14/25 17:16 Pulse Rate 82 02/14/25 17:16 Respiratory Rate 18 02/14/25 17:16 Blood Pressure 136/85 H 02/14/25 17:16 Pulse Oximetry (%) 96 02/14/25 17:16 Oxygen Delivery Method Room Air 02/14/25 17:16 Vital signs reviewed by provider: Yes Exam: On exam well-appearing does not appear ill or toxic Clinical Impression: Lab work imaging obtained as well as EKG
[2025-02-14 18:44] LABS: Basophils # (Auto) 0.1 Thou/mm3 (0.0-0.2); Basophils % (Auto) 1 % (0-2.5); Eosinophils # (Auto) 0.3 Thou/mm3 (0.0-0.5); Eosinophils % (Auto) 3 % (0-10); Hematocrit 40.0 % (36.0-46.0); Hemoglobin 13.2 g/dL (12.0-16.0); Immature Granulocytes Auto 0.04 Thou/mm3 (0.00-0.00); Lymphocytes # (Auto) 2.3 Thou/mm3 (1.0-4.8); Lymphocytes % (Auto) 26 % (10-50); Mean Corpuscular HGB Conc 33.0 g/dl (31.0-37.0); Mean Corpuscular Hemoglobin 28.9 pg (25.0-35.0); Mean Corpuscular Volume 88 fL (80-100); Monocytes # (Auto) 1.0 Thou/mm3 (0.0-0.8); Monocytes % (Auto) 11 % (0-12); Neutrophils # (Auto) 5.2 Thou/mm3 (1.8-7.7); Neutrophils % (Auto) 59 % (37-80); Nucleated Red Blood Cell # 0.00 Thou/mm3 (0.00-0.00); Nucleated Red Blood Cell % 0 /100 WBC (0); Platelet Count 486 Thou/mm3 (140-440); RDW Standard Deviation 46.1 fL (36.4-46.3); Red Blood Count 4.57 Miln/mm3 (4.00-5.20); White Blood Count 8.8 Thou/mm3 (3.6-11.0)
[2025-02-14 19:06] LABS: Alanine Aminotransferase 17 U/L (10-49); Albumin, Serum 4.2 gm/dL (3.4-4.8); Albumin/Globulin Ratio 1.2 (1.2-2.2); Alkaline Phosphatase 158 U/L (46-116); Anion Gap 7 (7-16); Aspartate Amino Transferase 23 U/L (0-34); BUN/Creatinine Ratio 9 Ratio (12-20); Bilirubin,Total 0.2 mg/dL (0.3-1.2); Blood Urea Nitrogen 13 mg/dL (9-23); Calcium 9.6 mg/dL (8.3-10.6); Calcium (Corrected) 9.6 mg/dL (8.5-10.1); Carbon Dioxide 29.7 mMol/L (20.0-31.0); Chloride 92 mMol/L (98-107); Creatinine (Component) 1.4 mg/dL (0.6-1.3); Estimated Creatinine Clearance 24.6 mL/min (>60); Globulin 3.5 gm/dL (2.3-3.5); Osmolality,Calculated 281 (275-295); Potassium 4.6 mMol/L (3.4-5.1); Sodium 129 mMol/L (136-145); Total Protein 7.7 gm/dL (5.7-8.2); Troponin I < 0.002 ng/mL (0.0-0.045); eGFR 37 See Note
[2025-02-14 19:13] LABS: Glucose 487 mg/dL (74-106)
[2025-02-14 20:13] VITALS: BP 162/74; PULSE 80; RESP 20; TEMP 36.4; O2SAT 95
[2025-02-14] MEDS: SODIUM CHLORIDE 0.9% 1000 ML 1,000 ML 999 ML IV (20:26)
[2025-02-14] MEDS: INSULIN HUM REGULAR 1 UNIT/0.01 ML (PER UNIT) 10 UNIT IV (20:28)
[2025-02-14] MEDS: HYDROcodone/APAP 5/325 TABLET 1 TAB PO (20:58)
--- NOTE | 2025-02-14 21:38 | PD.EDBACK ---
ED Back Injury Pain RME/HPI General Chief Complaint: Back Pain/Injury Stated Complaint: Back pain X4 days Time Seen by Provider: 02/14/25 18:35 Source: patient Arrival date/time: 02/14/25 16:58 Mode of arrival: wheelchair Limitations: language barrier LONNIEE / HPI Complaint: back pain Onset (ago): day(s) VICTORIANO / DEREK Narrative: 02/14/25 16:58 84-year-old female presents to the Emergency Department for complaints of neck pain, chest pain, back pain and head pain. Patient states that the symptoms have been going on for the past few days. Patient states she has had symptoms in the past, but they have resolved. Patient denies any traumatic events. Patient denies any fever nausea or vomiting. Vital signs were stable arrival. Exam: On exam well-appearing does not appear ill or toxic Impression: Lab work imaging obtained as well as EKG Related Data Home Medications ?Medication ?Instructions ?Recorded ?Confirmed hydrochlorothiazide 25 mg tablet 25 mg PO QDAY 05/04/17 12/26/24 Held on 12/28/24. Instructions: Resume on 01/04/25. Hold until follow up with PCP losartan 100 mg tablet 100 mg PO QDAY 05/04/17 12/26/24 dorzolamide 22.3 mg-timolol 6.8 1 drp ophthalmic (eye) BID 01/22/23 12/26/24 mg/mL eye drops latanoprost 0.005 % eye drops 1 drp ophthalmic (eye) HS 01/22/23 12/26/24 atorvastatin 10 mg tablet 10 mg PO HS 12/26/24 12/26/24 blood sugar diagnostic (True 12/26/24 12/26/24 Metrix Glucose Test Strip) cholecalciferol (vitamin D3) 25 25 mcg PO QDAY 12/26/24 12/26/24 mcg (1,000 unit) tablet (Vitamin D3) furosemide 20 mg tablet 20 mg PO Q12H 12/26/24 12/26/24 Held on 12/28/24. Instructions: Resume on 01/04/25. Hold until follow up with PCP gabapentin 300 mg capsule 300 mg PO TID 12/26/24 12/26/24 insulin degludec 100 unit/mL (3 5 unit subcut Q24H PRN 12/26/24 12/26/24 mL) subcutaneous pen (Tresiba hyperglycemia FlexTouch U-100 insulin) magnesium oxide 400 mg (241.3 mg 400 mg PO QDAY 12/26/24 12/26/24 magnesium) tablet metformin 500 mg tablet,extended 1,000 mg PO BIDAC 12/26/24 12/26/24 release 24 hr multivitamin 1 tab PO QDAY 12/26/24 12/26/24 Previous Rx's ?Medication ?Instructions ?Recorded diclofenac sodium 1 % topical gel 2 g topical QID PRN pain #100 grams 10/28/21 (Arthritis Pain (diclofenac)) pantoprazole 40 mg tablet,delayed 40 mg PO QDAY #30 tabs 01/27/23 release hydrocodone 5 mg-acetaminophen 325 1 tab PO Q6H PRN pain #14 tabs 02/14/25 mg tablet Allergies Allergy/AdvReac Type Severity Reaction Status Date / Time No Known Allergies Allergy Verified 02/14/25 17:03 Review of Systems Review of Systems Systems Reviewed: All systems reviewed, normal except as documented Past Medical History Past Medical History NEUROLOGIC: Negative Neurological Disorders or Seizures CARDIAC: Positive Cardiac Disorders, Hypercholesterolemia and Hypertension; Negative Congestive Heart Failure RESPIRATORY: Negative Chronic Obstructive Pulmonary Disease (COPD) GASTROINTESTINAL: Negative Gastrointestinal Disorders GENITOURINARY: Negative Genitourinary Disorders or Renal Disease MUSCULOSKELETAL: Negative Musculoskeletal Disorders ENT: Positive Cataracts and Blind ENDOCRINE: Positive Endocrine Disorders, Diabetes Mellitus Type 2 and Hyperthyroidism; Negative Diabetes Mellitus Type 1 HEMATOLOGIC: Negative Blood Disorders OTHER HISTORY: Positive Blood Transfusions; Negative Blood Transfusion Reaction or Anesthesia Reactions Social History SMOKING STATUS: Never smoker SECOND HAND EXPOSURE: No ED Exam Narrative Physical exam: Patient is nearly blind and utilizes a walker and wheelchair to ambulate and navigate through her home. Patient does not look toxic but rather, patient looks old and in poor health. General Limitations: Present language barrier General appearance: Present alert and in distress Head Head exam: Present atraumatic and other (Unremarkable cranial evaluation. No signs of trauma. No skull depressions or deformities.) Eye Eye exam: Present other (Patient is nearly blind in bilateral eyes.) ENT ENT exam: Present normal exam, normal oropharynx and mucous membranes moist Neck Neck exam: Present normal inspection, trachea midline and other (Diffuse bilateral tenderness to palpation throughout cervical spine extending into the upper back. No signs of trauma. No step-offs noted. Moderate reduced range of motion.) Chest Chest inspection: Present normal inspection and symmetric chest wall rise Respiratory Respiratory exam: Present normal lung sounds bilaterally Cardiovascular Cardiovascular exam: Present regular rate, normal rhythm and normal heart sounds Abdominal Exam Abdominal exam: Present soft and normal bowel sounds Extremities Exam Extremities exam: Present normal inspection and full ROM Back Exam Back exam: Present normal inspection and full ROM Neurological Exam Neurological exam: Present alert, oriented X3 and CN II-XII intact Psychiatric Psychiatric exam: Present normal affect and normal mood Skin Skin exam: Present warm, dry, intact and normal color Course Quality Measures none Orders Category Date Time Status EKG (ED ONLY) *Do not use* NOW Care 02/14/25 17:34 Completed Insert IV NOW Care 02/14/25 20:[address] cervical spine wo con Stat Exams 02/14/25 17:[address] head/brain wo con Stat Exams 02/14/25 17:34 Completed EKG (ED Only) Stat Exams 02/14/25 17:34 Draft XR chest 2V Stat Exams 02/14/25 17:34 Completed CBC Stat Lab 02/14/25 18:15 Completed Comprehensive Metabolic Panel Stat Lab 02/14/25 18:15 Completed Troponin I Stat Lab 02/14/25 18:15 Completed HYDROcodone*/APAP 5/325 [Kenneth 5/325] Med 02/14/25 20:33 Discontinued 1 tab PO X1 ONE Insulin Regular Med 02/14/25 20:22 Discontinued 10 unit IV X1 ONE Sodium Chloride 0.9% 1000 ml [Ns] 1,000 ml Med 02/14/25 20:23 Discontinued IV 999 mls/hr As noted above Vital Signs Vital signs: Vital Signs Temperature 97.8 F 02/14/25 17:16 Pulse Rate 82 02/14/25 17:16 Respiratory Rate 18 02/14/25 17:16 Blood Pressure 136/85 H 02/14/25 17:16 Pulse Oximetry (%) 96 02/14/25 17:16 Oxygen Delivery Method Room Air 02/14/25 17:16 As noted above Back Pain / Injury MDM Narrative MDM Narrative:: All studies performed the ED were evaluated by me personally. Serum laboratories revealed a hyponatremic state in a significant hyperglycemic state due to poorly controlled diabetes. Patient received fluids and insulin and her blood sugar returned to an acceptable zone prior to discharge. CT evaluation of head and neck was unremarkable for any acute intracranial processes or significant degenerative disc disease of the cervical spine. Patient appears to be suffering from some mild degenerative concerns in the cervical spine causing bilateral radiculopathy. Advised patient to utilize medication as needed and follow-up with primary care provider for discussions related to improve management of what is currently poorly controlled diabetes myelitis as well as possible pain management referral for neck and back pain concerns. Patient data External records reviewed:: [facility] previous records Clinical information provided by:: patient, family and other (specify) (Continuing Education Director) Social determinants that could affect healthcare access:: none Patient has the following chronic illnesses:: Hypertension, diabetes How is presenting disease/condition affected by chronic disease/condition?: exacerbated by Evaluation data The following diagnostics were reviewed and interpreted by me:: lab results, radiology exam(s) and EKG tracing(s) Lab and/or radiology exams considered but not ordered:: None Interpretation Summary: Poorly controlled diabetes Medications / Prescriptions Medications or Prescriptions considered but not ordered:: None Medication administrations:: Medication Administration History Discontinued Medications Hydrocodone Bitart/Acetaminophen (Hydrocodone/Apap 5/325 Tablet) 1 tab PO X1 ONE Stop: 02/14/25 20:34 Last Admin: 02/14/25 20:58 Dose: 1 tab Documented By: SARI Sodium Chloride (Ns) 1,000 mls @ 999 mls/hr IV .Q1H1M ONE Stop: 02/14/25 21:23 Last Infusion: 02/14/25 21:28 Dose: Infused Documented By: Admin: 02/14/25 20:26 Dose: 999 mls/hr Documented By: SARI Insulin Human Regular (Insulin Hum Regular 1 Unit/0.01 Ml (Per Unit)) 10 unit IV X1 ONE Stop: 02/14/25 20:23 Last Admin: 02/14/25 20:28 Dose: 10 unit Documented By: SARI Co-signed By: OLU As noted above Consultations Consultation(s) initiated? (list below): No Diagnosis Differential diagnosis back pain/injury: other (Cervical radiculopathy, intracranial mass, subarachnoid hemorrhage, sepsis, electrolyte abnormality, hyperglycemia) Most likely diagnosis given after review of the tests above:: Chronic neck pain, cervical radiculopathy, diabetes Admission Indicated Admission indicated?: not indicated Explain why admission is indicated or not indicated:: Unwarranted Admission Request Was there a request for admission?: No Disposition Plan Disposition Plan: Discharge Discharge Attestation Discharge Attestation: The patient and all family members were given an opportunity to ask questions and understood the discharge instructions. Discharge instructions specifically effects, indications for sooner follow up or return to the emergency department, and the expected course of current diagnosis. Patient condition: Stable Discharge Plan Plan Patient Disposition: HOME (Self Care) Prescriptions/Referrals Prescriptions/Med Rec: New hydrocodone-acetaminophen 5-325 mg tablet 1 tab PO Q6H MDD 4 tabs PRN (Reason: pain) Qty: 14 0RF No Action hydrochlorothiazide 25 mg Tablet 25 mg PO QDAY losartan 100 mg Tablet 100 mg PO QDAY latanoprost 0.005 % Drops 1 drp OPHTHALMIC (EYE) HS Rx Instructions: One drop to each eye dorzolamide-timolol 22.3-6.8 mg/mL Drops 1 drp OPHTHALMIC (EYE) BID Rx Instructions: One drop to each eye pantoprazole 40 mg tablet,delayed release (DR/EC) 40 mg PO QDAY Qty: 30 0RF insulin degludec [Tresiba FlexTouch U-100] 100 unit/mL (3 mL) insulin pen 5 unit SUBCUT Q24H PRN (Reason: hyperglycemia) magnesium oxide 400 mg (241.3 mg magnesium) tablet 400 mg PO QDAY atorvastatin 10 mg tablet 10 mg PO HS (DME) True Metrix Glucose Test Strip Strip gabapentin 300 mg capsule 300 mg PO TID cholecalciferol (vitamin D3) [Vitamin D3] 25 mcg (1,000 unit) tablet 25 mcg PO QDAY metformin 500 mg tablet extended release 24 hr 1,000 mg PO BIDAC furosemide 20 mg tablet 20 mg PO Q12H multivitamin Tablet 1 tab PO QDAY diclofenac sodium [Arthritis Pain (diclofenac)] 1 % gel 2 g topical QID PRN (Reason: pain) Qty: 100 0RF Rx Instructions: instructions in haitian: apply to back and hip Referrals: No Primary/Family,Physician [Primary Care Provider] - In 1 week Problem List Clinical Impression: Cervical disc disorder with radiculopathy, Diabetes mellitus due to underlying condition with hyperglycemia Patient/Caregiver Discharge Instructions Education Materials: Cervical Disk Problems, Diabetes: Living Your Life Additional Instructions: Advised patient like medication as needed for pain and additionally, patient should follow-up with primary care provider for discussions related to improvement of what is currently poorly controlled diabetes myelitis. Print Language: Uzbek Stand Alone Forms: Jacqueline Wall Info., Patient Portal Info Letter
[2025-02-14 21:42] VITALS: BP 163/88; PULSE 78; RESP 16; TEMP 36.4; O2SAT 98
[2025-02-14 21:52] VITALS: BP 163/88; PULSE 79; RESP 20; O2SAT 98
== END 2025-02-14 21:53 | disposition home or self-care (01) ==
PROVIDERS: Nurse Practitioner Primary Care; Emergency Provider Emergency Medicine
DX: M50.10 Cervical disc disorder with radiculopathy, unspecified cervical region (principal); E11.65 Type 2 diabetes mellitus with hyperglycemia; R07.9 Chest pain, unspecified
CPT/HCPCS: 36415; 70450; 71046; 72125; 80053; 84484; 85025; 93005; 96360; 99284; J1815; J7030; A9270